=== PATIENT | female | born 1945 | race Caucasian/White ===

== ENCOUNTER → 2016-09-23 | Outpatient (CLI) | payer MEDICARE ==
[~2016-09-23] MED LIST: B/P MEDS; ESTR0.455 PO; NF-ESOM40C PO
--- OUTSIDE RECORDS SUMMARY | 2016-09-23 09:32 | XMS REPORT | Continuity of Care Document ---
Author Author [facility] Organization [facility] Address Unknown Phone Unavailable Allergies Active Description Code Type Severity Reaction Onset Reported/Identified Relationship to Patient Clinical Status Yes Sulfa (Sulfonamide Antibiotics) [id number] Drug Allergy Unknown N/A 02/06/2008 Medications Problems Date Dx Coded Attending Type Code Diagnosis Diagnosed By 09/18/2010 Ot 211.1 09/18/2010 Ot 530.11 09/18/2010 Ot 531.90 09/18/2010 Ot 535.50 09/18/2010 Ot 553.3 06/30/2012 Ot 272.4 06/30/2012 Ot 401.9 06/30/2012 Ot 426.3 06/30/2012 Ot 530.81 06/30/2012 Ot 780.2 06/30/2012 Ot 847.0 06/30/2012 Ot 873.43 06/30/2012 Ot 873.44 06/30/2012 Ot E000.8 06/30/2012 Ot E849.0 06/30/2012 Ot E888.9 06/30/2012 Ot V06.5 07/04/2012 Ot V58.32 10/02/2012 Ot 780.2 07/16/2014 JULIETH BOONE DO Ot 733.90 07/16/2014 JULIETH BOONE DO Ot V76.12 06/05/2015 Ot 793.89 06/05/2015 Ot 733.90 06/05/2015 Ot V76.12 06/05/2015 Ot 789.00 06/05/2015 Ot 786.50 06/05/2015 Ot 562.10 06/05/2015 Ot 578.1 06/05/2015 Ot 787.91 06/05/2015 Ot V76.12 06/05/2015 Ot 733.90 06/05/2015 Ot V76.12 06/05/2015 Ot 780.2 06/05/2015 JULIETH BOONE DO Ot 625.9 06/05/2015 ANA TAYLOR MD Ot 625.9 06/05/2015 MELY PITTMAN JULIETH C Ot V76.12 06/05/2015 CHAS LE, RICK Deleon Ot 558.9 06/05/2015 RICK DOHERTY MD Ot 789.01 06/05/2015 MELY PITTMAN JULIETH C Ot 733.90 06/05/2015 MELY PITTMAN JULIETH C Ot V76.12 06/30/2015 MIGUEL ESTHELA Betty MIXING MACHINE TENDER CORK ROD Ot H53.9 06/30/2015 MIGUEL ESTHELA M MIXING MACHINE TENDER CORK ROD Ot R51 07/03/2015 ESTHELA RIVERA MIXING MACHINE TENDER CORK ROD Ot H53.9 07/03/2015 ESTHELA RIVERA MIXING MACHINE TENDER CORK ROD Ot R51 07/23/2015 MELY PITTMAN JULIETH Yuliana Ot Z12.31 Procedures Results Encounters ACCT No. Visit Date/Time Discharge Status Pt. Type Provider Facility Loc./Unit Complaint [id number] 07/03/2015 12:45:00 2014 23:59:59 CLS Outpatient BOONE DOJULIETH [facility] RAD [id number] 06/05/2015 14:42:00 2014 23:59:59 CLS Outpatient ESTHELA RIVERAP [facility] RAD [id number] 06/20/2014 10:41:00 2013 23:59:59 CLS Outpatient BOONE JULIETH PITTMAN [facility] RAD [id number] 05/08/2014 12:40:00 2013 23:59:59 CLS Outpatient RICK DOHERTY MD [facility] RAD [id number] 05/29/2013 10:10:00 2012 23:59:59 CLS Outpatient BOONE DOJULIETH [facility] RAD [id number] 05/04/2013 09:16:00 2012 23:59:59 CLS Outpatient ANA TAYLOR MD [facility] RAD [id number] 04/16/2013 07:50:00 2012 23:59:59 CLS Outpatient BOONE DOJULIETH [facility] [id number] 10/03/2012 08:30:00 Document Registration [id number] 07/04/2012 09:11:00 Document Registration [id number] 07/04/2012 08:43:00 Document Registration [id number] 06/28/2012 11:15:00 Document Registration [id number] 06/09/2012 10:49:00 Document Registration [id number] 05/17/2011 09:52:00 Document Registration [id number] 11/23/2010 06:52:00 Document Registration [id number] 10/12/2010 07:45:00 Document Registration [id number] 09/18/2010 08:52:00 Document Registration [id number] 09/09/2010 08:47:00 Document Registration [id number] 04/16/2010 10:14:00 Document Registration [id number] 12/17/2009 13:48:00 Document Registration
--- NOTE | 2016-09-23 12:34 | Diagnostic Imaging Report ---
EXAM: DEXA scan. INDICATION: Screening for osteoporosis. FINDINGS: This study was compared to the prior exam of 06/20/14. The bone mineral density of the hips and spine was measured. The T score for the spine was 0.3. On the prior exam, the T score is 0.4. The T score for the left hip is 0.0 for the right hip is 0.3. On the previous exam, the respective T-scores were -0.2 and 0.0. IMPRESSION: There does not appear to have been any significant change since the prior study. There has been a minimal decrease in the bone mineral density of the spine and a slight increase in the bone mineral density of the hips. All of the T score values remain within normal limits. Dictated by: Dictated on workstation # [id number]
--- NOTE | 2016-09-23 19:13 | Diagnostic Imaging Report ---
INDICATION: Screening. At this time there are no current complaints. EXAMINATION: Bilateral digital screening mammogram with CAD. The current study was also evaluated with a Computer Aided Detection (CAD) system. COMPARISON: This study was compared to the prior exams of 07/03/15, 06/20/14 and 05/29/13. FINDINGS: The fibroglandular tissue in both breasts is dense. This does limit the sensitivity of this exam. Overall, there does not appear to have been any significant change. The small oval nodule in the midportion of the right breast, seen on the MLO view of the prior exam of 05/17/11, is again visualized and no different. There is no primary or secondary sign of malignancy noted. IMPRESSION: There is no evidence for malignancy. ACR BI-RADS Category 1: Negative. Result letter will be mailed to the patient. Note: At least 10% of breast cancer is not imaged by mammography. Dictated by: Dictated on workstation # [id number]
== END ==
LOC: RAD 09:29
PROVIDERS: ATTEND Obstetrics & Gynecology
DX: Z12.31 Encounter for screening mammogram for malignant neoplasm of breast (principal); M85.88 Other specified disorders of bone density and structure, other site; E55.9 Vitamin D deficiency, unspecified
CPT/HCPCS: 77067; 77080

== ENCOUNTER → 2016-09-30 | Outpatient (CLI) | payer MEDICARE ==
--- OUTSIDE RECORDS SUMMARY | 2016-09-30 09:29 | XMS REPORT | Continuity of Care Document ---
Author Author [facility] Organization [facility] Address Unknown Phone Unavailable Allergies Active Description Code Type Severity Reaction Onset Reported/Identified Relationship to Patient Clinical Status Yes Sulfa (Sulfonamide Antibiotics) [id number] Drug Allergy Unknown N/A 02/06/2008 Medications Problems Date Dx Coded Attending Type Code Diagnosis Diagnosed By 09/18/2010 Ot 211.1 09/18/2010 Ot 530.11 09/18/2010 Ot 531.90 09/18/2010 Ot 535.50 09/18/2010 Ot 553.3 06/30/2012 Ot 272.4 HYPERLIPIDEMIA NEC/NOS 06/30/2012 Ot 401.9 HYPERTENSION NOS 06/30/2012 Ot 426.3 LEFT BB BLOCK NEC 06/30/2012 Ot 530.81 ESOPHAGEAL REFLUX 06/30/2012 Ot 780.2 SYNCOPE AND COLLAPSE 06/30/2012 Ot 847.0 SPRAIN OF NECK 06/30/2012 Ot 873.43 OPEN WOUND OF LIP 06/30/2012 Ot 873.44 OPEN WOUND OF JAW 06/30/2012 Ot E000.8 OTHER EXTERNAL CAUSE STATUS 06/30/2012 Ot E849.0 ACCIDENT IN HOME 06/30/2012 Ot E888.9 FALL NOS 06/30/2012 Ot V06.5 TETANUS-DIPHTHERIA [TD][DT] 07/04/2012 Ot V58.32 ENCOUNTER FOR REMOVAL OF SUTURES 10/02/2012 Ot 780.2 SYNCOPE AND COLLAPSE 07/16/2014 JULIETH BOONE DO Ot 733.90 07/16/2014 JULIETH BOONE DO Ot V76.12 06/05/2015 Ot 793.89 06/05/2015 Ot 733.90 06/05/2015 Ot V76.12 06/05/2015 Ot 789.00 06/05/2015 Ot 786.50 06/05/2015 Ot 562.10 06/05/2015 Ot 578.1 06/05/2015 Ot 787.91 06/05/2015 Ot V76.12 06/05/2015 Ot 733.90 06/05/2015 Ot V76.12 06/05/2015 Ot 780.2 06/05/2015 BOONE DO JULIETH C Ot 625.9 06/05/2015 CLAUDIA LE, ANA Hernández Ot 625.9 06/05/2015 BOONE DO, JULIETH C Ot V76.12 06/05/2015 CHAS LE, RICK Deleon Ot 558.9 06/05/2015 CHAS LE, RICK Deleon Ot 789.01 06/05/2015 BOONE DO, JULIETH C Ot 733.90 06/05/2015 BOONE DO, JULIETH C Ot V76.12 06/30/2015 ESTHELA RIVERA DIRECTOR OF SUSTAINABILITY Ot H53.9 06/30/2015 ESTHELA RIVERA DIRECTOR OF SUSTAINABILITY Ot R51 07/03/2015 ESTHELA RIVERA DIRECTOR OF SUSTAINABILITY Ot H53.9 07/03/2015 ESTHELA RIVERA DIRECTOR OF SUSTAINABILITY Ot R51 07/23/2015 BOONE DO JULIETH C Ot Z12.31 09/23/2016 Ot V76.12 OTH SCREEN MAMMO-MALIGN NEOPLASM OF [place] 09/23/2016 Ot 733.90 BONE CARTILAGE DIS NOS 09/23/2016 Ot V76.12 OTH SCREEN MAMMO-MALIGN NEOPLASM OF [place] 09/23/2016 Ot 780.2 SYNCOPE AND COLLAPSE 09/23/2016 BOONE DO, JULIETH C Ot 625.9 FEM GENITAL SYMPTOMS NOS 09/23/2016 CLAUDIA LE, ANA Hernández Ot 625.9 FEM GENITAL SYMPTOMS NOS 09/23/2016 BOONE DO JULIETH C Ot V76.12 OTH SCREEN MAMMO-MALIGN NEOPLASM OF [place] 09/23/2016 CHAS LE, RICK Deleon Ot 558.9 NONINF GASTROENTERIT NEC 09/23/2016 CHAS LE, RICK Deleon Ot 789.01 ABDOMINAL PAIN, RIGHT UPPER QUADRANT 09/23/2016 BOONE DO, JULIETH C Ot 733.90 BONE CARTILAGE DIS NOS 09/23/2016 BOONE DO, JULIETH C Ot V76.12 OTH SCREEN MAMMO-MALIGN NEOPLASM OF [place] 09/23/2016 ESTHELA RIVERA DIRECTOR OF SUSTAINABILITY Ot H53.9 UNSPECIFIED VISUAL DISTURBANCE 09/23/2016 ESTHELA RIVERA DIRECTOR OF SUSTAINABILITY Ot R51 HEADACHE 09/23/2016 BOONE DO, JULIETH C Ot Z12.31 ENCNTR SCREEN MAMMOGRAM FOR MALIGNANT NE 09/23/2016 BOONE DO, JULIETH C Ot M85.9 DISORDER OF BONE DENSITY AND STRUCTURE, 09/23/2016 BOONE DO, JULIETH C Ot E55.9 VITAMIN D DEFICIENCY, UNSPECIFIED 09/23/2016 BOONE DO, JULIETH C Ot M85.9 DISORDER OF BONE DENSITY AND STRUCTURE, 09/23/2016 BOONE DO, JULIETH C Ot Z12.31 ENCNTR SCREEN MAMMOGRAM FOR MALIGNANT NE 09/23/2016 BOONE DO, JULIETH C Ot E55.9 VITAMIN D DEFICIENCY, UNSPECIFIED 09/23/2016 BOONE DO, JULIETH C Ot M85.9 DISORDER OF BONE DENSITY AND STRUCTURE, 09/23/2016 BOONE DO, JULIETH C Ot Z12.31 ENCNTR SCREEN MAMMOGRAM FOR MALIGNANT NE 09/24/2016 BOONE DO, JULIETH C Ot E55.9 VITAMIN D DEFICIENCY, UNSPECIFIED 09/24/2016 BOONE DO, JULIETH C Ot M85.9 DISORDER OF BONE DENSITY AND STRUCTURE, 09/24/2016 BOONE DO, JULIETH C Ot Z12.31 ENCNTR SCREEN MAMMOGRAM FOR MALIGNANT NE Procedures Results Encounters ACCT No. Visit Date/Time Discharge Status Pt. Type Provider Facility Loc./Unit Complaint [id number] 07/03/2015 12:45:00 2014 23:59:59 CLS Outpatient JULIETH BOONE DO [facility] RAD SCREENING [id number] 06/05/2015 14:42:00 2014 23:59:59 CLS Outpatient ESTHELA RIVERA [facility] RAD VISON CHANGES,HEADACHES [id number] 06/20/2014 10:41:00 2013 23:59:59 CLS Outpatient JULIETH BOONE DO [facility] RAD SCREENING, OSTEPOROSIS [id number] 05/08/2014 12:40:00 2013 23:59:59 CLS Outpatient RICK DOHERTY MD [facility] RAD RUQ PAIN,COLITIS [id number] 05/29/2013 10:10:00 2012 23:59:59 CLS Outpatient BOONEFemi PITTMAN JULIETH C [facility] RAD SCREENING [id number] 05/04/2013 09:16:00 2012 23:59:59 CLS Outpatient ANA TAYLOR MD [facility] RAD PELVIC PAIN [id number] 04/16/2013 07:50:00 2012 23:59:59 CLS Outpatient MELY PITTMAN JULIETH C [facility] RAD PELVIC PAIN [id number] 09/23/2016 09:29:00 ACT Outpatient JULIETH BOONE DO [facility] RAD HYPOVITAMINOSIS D,OSTEOPENIA OF THE ELDERLY [id number] 10/03/2012 08:30:00 Document Registration [id number] 07/04/2012 09:11:00 Document Registration [id number] 07/04/2012 08:43:00 Document Registration [id number] 06/28/2012 11:15:00 Document Registration [id number] 06/09/2012 10:49:00 Document Registration [id number] 05/17/2011 09:52:00 Document Registration [id number] 11/23/2010 06:52:00 Document Registration [id number] 10/12/2010 07:45:00 Document Registration [id number] 09/18/2010 08:52:00 Document Registration [id number] 09/09/2010 08:47:00 Document Registration [id number] 04/16/2010 10:14:00 Document Registration [id number] 12/17/2009 13:48:00 Document Registration
--- NOTE | 2016-09-30 15:53 | Diagnostic Imaging Report ---
Renal Doppler ultrasound. INDICATION: Hypertension. FINDINGS: The right kidney is 7.4 cm and the left kidney is 8.9 cm in length. There is no hydronephrosis. There is a 1.8 cm simple cyst in the lower pole of the right kidney. The peak systolic velocities in the right renal artery are 68, 61, and 74 cm/s and on the left 83, 84, and 100 cm/s from proximal to distal. Resistive index in the right kidney is 0.74-0.76 and on the left side 0.73-0.74. IMPRESSION: No significant abnormality. No evidence of renal artery stenosis. Dictated by: Dictated on workstation # [id number]
--- NOTE | 2016-10-01 06:48 | ECHOCARDIOGRAPHY REPORT ---
PROCEDURE PHYSICIAN: JIMBO RAIN DATE OF PROCEDURE: 09/30/2016 TWO DIMENSIONAL ECHOCARDIOGRAM REPORT PRIMARY PHYSICIAN: OTHER PHYSICIAN: REFERRING PHYSICIAN: Dr. Evelyn Woods ORDERING PHYSICIAN: INDICATION FOR THE PROCEDURE: Chest pain. MEASUREMENTS DERIVED VALUES LV DIAMETER (LAX) NORMALS NORMALS Diastolic 3.5 (3.6-5.2) Eject. Fract. 60% (60%+/-6%) Systolic (2.3-3.9) Diastolic Vol. % Shortening (0.22-0.42) Systolic Vol. Aortic Root IVS THICKNESS Diastolic 1 (0.6-1.1) LVPW THICKNESS Diastolic 1 (0.6-1.1) LA DIAMETER Systolic 2.4 (2.1-3.7) FINDINGS: 1. Technical quality is good. 2. The left ventricle is normal in size with normal contractility. Systolic function appeared to be normal. Estimated ejection fraction is 60%. 3. The left atrium is normal in size. No clot or thrombus were seen within the left atrium. 4. The right atrium and right ventricle are normal in size. No clot or thrombus were seen within the right side. 5. Mitral valve is normal in morphology with mild mitral regurgitation noted by color Doppler flow. No mitral valve prolapse. No mitral valve stenosis. 6. Aortic valve is trileaflet with normal opening and closing pattern. No significant aortic valve stenosis or regurgitation was seen. 7. Tricuspid valve is normal in morphology with mild to moderate tricuspid regurgitation noted by color Doppler flow. Doppler across tricuspid valve estimated pulmonary artery pressure of 28+ right atrial pressure. 8. Pulmonic valve is functioning normally. 9. No pericardial effusion. CONCLUSION: 1. Normal left ventricular size and systolic function. Estimated ejection fraction 60%. 2. Mild mitral regurgitation, mild to moderate tricuspid regurgitation. 3. Estimated pulmonary artery pressure of 35 mmHg. Job ID: [id number] Dictated Date: 09/30/2016 16:48:06 University Manager Date: 10/01/2016 06:45:45 / vinita
== END ==
LOC: RAD 09:24
PROVIDERS: ATTEND Internal Medicine Cardiovascular Disease
DX: I10 Essential (primary) hypertension (principal); R07.9 Chest pain, unspecified; E78.2 Mixed hyperlipidemia; I44.7 Left bundle-branch block, unspecified
CPT/HCPCS: 93306; 93975

== ENCOUNTER → 2016-10-06 | Outpatient (CLI) | payer MEDICARE ==
[~2016-10-06] VITALS: Ht 154.9 cm; Wt 54.9 kg
[~2016-10-06] MED LIST changes: +CATHETER FLUSH 10 ML SYR IV PRN; +REGADENOSON 0.4 MG/5 ML SYR (LEXISCAN) IV ONE
--- OUTSIDE RECORDS SUMMARY | 2016-10-06 07:32 | XMS REPORT | Continuity of Care Document ---
Author Author [facility] Organization [facility] Address Unknown Phone Unavailable Allergies Active Description Code Type Severity Reaction Onset Reported/Identified Relationship to Patient Clinical Status Yes Sulfa (Sulfonamide Antibiotics) [id number] Drug Allergy Unknown N/A 02/06/2008 Medications Problems [...] JULIETH C Ot V76.12 06/30/2015 ESTHELA RIVERA NUCLEAR PHYSICIST Ot H53.9 06/30/2015 ESTHELA RIVERA NUCLEAR PHYSICIST Ot R51 07/03/2015 ESTHELA RIVERA NUCLEAR PHYSICIST Ot H53.9 07/03/2015 ESTHELA RIVERA NUCLEAR PHYSICIST Ot R51 07/23/2015 BOONE DO JULIETH C [...] MAMMO-MALIGN NEOPLASM OF [place]AND[place] 09/23/2016 ESTHELA RIVERA NUCLEAR PHYSICIST Ot H53.9 UNSPECIFIED VISUAL DISTURBANCE 09/23/2016 RIVERA, ESTHELA M NUCLEAR PHYSICIST Ot R51 HEADACHE 09/23/2016 BOONE DO, JULIETH [...] Z12.31 ENCNTR SCREEN MAMMOGRAM FOR MALIGNANT NE 09/30/2016 JIMBO RAIN MD Ot E78.2 MIXED HYPERLIPIDEMIA 09/30/2016 JIMBO RAIN MD Ot I10 ESSENTIAL (PRIMARY) HYPERTENSION 09/30/2016 JIMBO RAIN MD Ot I44.7 LEFT BUNDLE-BRANCH BLOCK, UNSPECIFIED 09/30/2016 JIMBO RAIN MD Ot R07.9 CHEST PAIN, UNSPECIFIED 10/01/2016 JIMBO RAIN MD Ot E78.2 MIXED HYPERLIPIDEMIA 10/01/2016 JIMBO RAIN MD Ot I10 ESSENTIAL (PRIMARY) HYPERTENSION 10/01/2016 JIMBO RAIN MD Ot I44.7 LEFT BUNDLE-BRANCH BLOCK, UNSPECIFIED 10/01/2016 JIMBO RAIN MD Ot R07.9 CHEST PAIN, UNSPECIFIED 10/06/2016 JIMBO RAIN MD Ot E78.2 MIXED HYPERLIPIDEMIA 10/06/2016 JIMBO RAIN MD Ot I10 ESSENTIAL (PRIMARY) HYPERTENSION 10/06/2016 JIMBO RAIN MD Ot I44.7 LEFT BUNDLE-BRANCH BLOCK, UNSPECIFIED 10/06/2016 BRISEYDA LE, JIMBO Fan Ot R07.9 CHEST PAIN, UNSPECIFIED Procedures Results Encounters ACCT No. Visit Date/Time Discharge Status Pt. Type Provider Facility Loc./Unit Complaint [id number] 07/03/2015 12:45:00 2014 23:59:59 CLS Outpatient JULIETH BOONE DO [facility] RAD SCREENING [id number] 06/05/2015 14:42:00 2014 23:59:59 CLS Outpatient ESTHELA RIVERA NUCLEAR PHYSICIST [facility] RAD VISON CHANGES,HEADACHES [id number] 06/20/2014 10:41:00 2013 23:59:59 CLS Outpatient JULIETH BOONE DO [facility] RAD SCREENING, OSTEPOROSIS [id number] 05/08/2014 12:40:00 2013 23:59:59 CLS Outpatient RICK DOHERTY MD [facility] RAD RUQ PAIN,COLITIS [id number] 05/29/2013 10:10:00 2012 23:59:59 CLS Outpatient JULIETH BOONE DO [facility] RAD SCREENING [id number] 05/04/2013 09:16:00 2012 23:59:59 CLS Outpatient ANA TAYLOR MD [facility] RAD PELVIC PAIN [id number] 04/16/2013 07:50:00 2012 23:59:59 CLS Outpatient JULIETH BOONE DO [facility] RAD PELVIC PAIN [id number] 10/06/2016 07:23:00 ACT Outpatient JIMBO RAIN MD [facility] CARD CHEST PAIN SYNDROME [id number] 09/30/2016 09:24:00 ACT Outpatient JIMBO RAIN MD [facility] RAD CHEST PAIN SYNDROME [id number] 09/23/2016 09:29:00 ACT Outpatient JULIETH BOONE DO [facility] RAD HYPOVITAMINOSIS D,OSTEOPENIA OF THE ELDERLY [id number] 10/03/2012 08:30:00 Document Registration [id number] 07/04/2012 09:11:00 Document Registration [id number] 07/04/2012 08:43:00 Document Registration [id number] 06/28/2012 11:15:00 Document Registration [id number] 06/09/2012 10:49:00 Document Registration [id number] 05/17/2011 09:52:00 Document Registration [id number] 11/23/2010 06:52:00 Document Registration [id number] 10/12/2010 07:45:00 Document Registration [id number] 09/18/2010 08:52:00 Document Registration [id number] 09/09/2010 08:47:00 Document Registration [id number] 04/16/2010 10:14:00 Document Registration [id number] 12/17/2009 13:48:00 Document Registration
[2016-10-06 09:20] VITALS: BP 156/76
--- NOTE | 2016-10-07 10:01 | STRESS TEST ---
PROCEDURE PHYSICIAN: JIMBO RAIN DATE OF PROCEDURE: 10/06/2016 LEXISCAN MYOVIEW STRESS TEST REPORT: REFERRING PHYSICIAN: Dr. Evelyn Woods. INDICATION FOR THE PROCEDURE: Chest pain. BASELINE HEART RATE: 83 BASELINE BLOOD PRESSURE: 157/66 BASELINE EKG: Sinus rhythm with poor R wave progression, left bundle branch block. IN SUMMARY: The patient was injected with 10.2 mCi of technetium 99 Myoview and the resting images were obtained. Then the patient received 0.4 mg of Lexiscan followed by 30.6 mCi of technetium 99 Myoview. Throughout the test, there were no EKG changes. The resting and stress images were reviewed and compared in the short axis, horizontal long axis, and vertical long axis views. Review of the images showed good radiotracer uptake with no ischemia or infarction. SSS is 2, SDS 0, TID value 1.06. On the gated images, the left ventricle appeared to be normal size with normal contractility. Calculated ejection fraction 68%. IN CONCLUSION: 1. The patient tolerated Lexiscan well. 2. No ischemia or infarction on SPECT images. 3. Normal left ventricular size with normal contractility. Calculated ejection fraction 68%. Job ID: [id number] Dictated Date: 10/07/2016 07:09:24 Regional Sales Consultant Date: 10/07/2016 09:58:46 / [email or web address]
== END ==
LOC: CARD 07:23
PROVIDERS: ATTEND Internal Medicine Cardiovascular Disease
DX: R07.9 Chest pain, unspecified (principal); I10 Essential (primary) hypertension; I44.7 Left bundle-branch block, unspecified; E78.2 Mixed hyperlipidemia
CPT/HCPCS: 78452; 93017

== ENCOUNTER 2017-12-07 05:34 | Outpatient (CLI) | payer MEDICARE ==
[~2017-12-07] VITALS: Ht 154.9 cm; Wt 54.9 kg
[~2017-12-07 05:34] MED LIST changes: -CATHETER FLUSH 10 ML SYR IV PRN; -REGADENOSON 0.4 MG/5 ML SYR (LEXISCAN) IV ONE
[2017-12-07] MEDS ORDERED: METO-370 PO (11:20)
[2017-12-07] MEDS ORDERED: VIT1CAPS9 PO (11:20)
[2017-12-07] MEDS ORDERED: CHOL500061 PO (11:20)
[2017-12-07] MEDS ORDERED: LOSA50TA36 PO (11:20)
[2017-12-07] MEDS ORDERED: ESTR1TAB24 PO (11:20)
[2017-12-07] MEDS ORDERED: ATOR20TA66 PO (11:20)
[2017-12-07] MEDS ORDERED: OMEG-160 PO (11:20)
== END 2017-12-07 11:26 ==
LOC: PREOP 05:34
PROVIDERS: ATTEND Surgery
DX: Z01.818 Encounter for other preprocedural examination (principal)

== ENCOUNTER 2017-12-14 09:13 | Day surgery (SDC) | payer MEDICARE ==
[~2017-12-14] VITALS: Ht 154.9 cm; Wt 54.9 kg
[~2017-12-14 09:13] MED LIST changes: +ATOR20TA66 PO; +CHOL500061 PO; +ESTR1TAB24 PO; +LOSA50TA36 PO; +METO-370 PO; +OMEG-160 PO; +VIT1CAPS9 PO
[2017-12-14] MEDS ORDERED: NS IV 500 ML 500 ML ONE (09:37)
[2017-12-14 09:40] VITALS: BP 178/73
[2017-12-14] MEDS ORDERED: NS IV 500 ML 500 ML IV PRN (10:01)
--- NOTE | 2017-12-14 10:11 | Conscious Sedation/ASA ---
Conscious Sedation Pre-Proced Time Reviewed: 09:30 ASA Class: 2 Airway Mallampati Classification: ([place] appropriate class) I. II. III, IV Lungs Heart ASA score ASA 1: a normal healthy patient ASA 2: a patient with a mild systemic disease (mid diabetes, controlled hypertension, obesity ASA 3: a patient with a severe systemic disease that limits activity (angina , COPD, prior Myocardial infarction) ASA 4: a patient with an incapacitating disease that is a constant threat to life (CHF, renal failure) ASA 5: a moribund patient not expected to survive 24 hrs. (ruptured aneurysm) ASA 6: a declared brain patient whose organs are being harvested. For emergent operations, add the letter E after the classification Grade 2 Sedation Plan: Analgesia, Amnesia, Plan communicated to team members, Discussed options with patient/fam, Discussed risks with patient/fam Note The patient is an appropriate candidate to undergo the planned procedure, sedation, and anesthesia. The patient immediately re-assessed prior to indication. FARZANA HARE MD December 14, 2017 10:11 am
--- NOTE | 2017-12-14 10:12 | Progress Note-Pre Operative ---
Pre-Operative Progress Note H&P Reviewed The H&P was reviewed, patient examined and no changes noted. Date Seen by Provider: December 14, 2017 Time Seen by Provider: :30 Date H&P Reviewed: December 14, 2017 Time H&P Reviewed: :30 Pre-Operative Diagnosis: GERD, hx diverticulitis FARZANA HARE MD December 14, 2017 10:12 am
[2017-12-14] MEDS ORDERED: LIDOCAINE JELLY 2% (XYLOCAINE) 5 ML TUBE ONE (10:13)
[2017-12-14] MEDS ORDERED: fentaNYL INJECTION 100 MCG/2 ML AMP ONE ×3 (10:13→11:06)
[2017-12-14] MEDS ORDERED: MIDAZOLAM 2 MG/2 ML (VERSED) VIAL ONE ×5 (10:14→11:06)
[2017-12-14] MEDS ORDERED: HURRICAINE EXT TUBE (BENZOCAINE) ONE (10:14)
[2017-12-14] MEDS ORDERED: HURRICAINE EXT TUBE (BENZOCAINE) XX PRN (10:15)
[2017-12-14] MEDS ORDERED: ONDANSETRON 4 MG/2 ML (SDV) Z0FRAN IV PRN (10:15)
[2017-12-14] MEDS ORDERED: ACETAMINOPHEN 325 MG TABLET/CAPLET (TYLENOL) PO PRN (10:15)
[2017-12-14] MEDS ORDERED: HYDROcodone/APAP 5 MG/325 MG (LORTAB) TAB PO PRN (10:15)
[2017-12-14] MEDS ORDERED: LIDOCAINE JELLY 2% (XYLOCAINE) 5 ML TUBE MM PRN (10:15)
[2017-12-14] MEDS ORDERED: morphine INJ 10 MG/ML 1ML (SYR OR VIAL) IV PRN (10:15)
[2017-12-14] MEDS: fentaNYL INJECTION 100 MCG/2 ML AMP IVP PRN ×6 (10:23→11:19)
[2017-12-14] MEDS: MIDAZOLAM 2 MG/2 ML (VERSED) VIAL IVP PRN ×5 (10:25→11:11)
--- NOTE | 2017-12-14 11:38 | Progress Note-Post Operative ---
Post-Operative Progess Note Surgeon (s)/Clerk Guide (s) Surgeon FARZANA HARE MD Clerk Guide: none Pre-Operative Diagnosis GERD, hx diverticulitis Post-Operative Diagnosis reflux esophagitis(class B), mild-mod gastritis. chronic stage 1 ext and int hemorrhoids, moderate sigmoid diverticulosis. Procedure & Operative Findings Date of Procedure 12/14/17 Procedure Performed/Findings EGD with bx. Colonoscopy. Anesthesia Type CS Estimated Blood Loss Estimated blood loss (mL): minimal Specimens/Packing Specimens Removed GE jxn, antrum FARZANA HARE MD December 14, 2017 11:38 am
--- NOTE | 2017-12-14 11:39 | Discharge Inst-Surgical ---
D/C Lap Instructions-PAYAM Follow up PRN Activity as tolerated High Fiber Diet 25g or more per day Avoid Alcohol, Caffeine, Spicy [place] and Acid foods. Drink 64 fluid oz or more of fluids per day. Symptoms to Report: Fever over 101 degree F, Nausea/Vomiting If any problems/questions: Contact your physician or go to Emergency Room FARZANA HARE MD December 14, 2017 11:39 am
[2017-12-14 12:00] VITALS: BP 123/74
[2017-12-14 12:28] VITALS: BP 150/70
[2017-12-14] MEDS ORDERED: ONDANSETRON 4 MG (ZOFRAN) ORAL DISSOLVE TAB PO NR (13:10)
[2017-12-14 14:00] VITALS: BP 174/69
--- NOTE | 2017-12-14 21:12 | OPERATIVE REPORT ---
DATE OF SERVICE: 12/14/2017 ATTENDING PRIMARY CARE PHYSICIAN: Evelyn Woods MD PREOPERATIVE DIAGNOSES: Gastroesophageal reflux disease, history of diverticulitis. POSTOPERATIVE DIAGNOSES: Reflux esophagitis class B. No significant sized hiatal hernia, mild to moderate gastritis, chronic stage I external and internal hemorrhoids, moderate sigmoid diverticulosis. PROCEDURE: EGD with biopsy, colonoscopy. SURGEON: Farzana Harrison MD ANESTHESIA: Conscious sedation. ESTIMATED BLOOD LOSS: Minimal. FINDINGS: 1. EGD, reflux esophagitis class B. On this exam, there was no significant hiatal hernia identified upon retroflexion and insufflation, mild to moderate gastritis. No formal ulcers, polyps or any neoplasms. Pylorus and duodenum appeared normal. 2. Colonoscopy. Chronic stage I external and internal hemorrhoids, moderate sigmoid diverticulosis with no mucosal inflammatory change to indicate any active diverticulitis. The remainder of the colon was normal. There were no polyps identified. DISPOSITION: The patient tolerated the procedure well. INDICATIONS: The patient is a 72-year-old female, who we have seen before in the past. She has a longstanding history of gastroesophageal reflux disease; however, has been able to keep her symptoms manageable with medication as well as diet and lifestyle changes. She did undergo an EGD on 09/18/2010, which did show gastroesophageal reflux disease and gastritis, as well as a hiatal hernia. Biopsies were negative for H. pylori as well as negative for Shepherd's esophagus. She reports that she has had worsening episodes of left upper chest discomfort when taking spicy foods including garlic as well as chocolate. She also has had left lower quadrant abdominal pain on an intermittent basis and suspected diverticulitis. She underwent 2 previous attempts for colonoscopy; however, due to the tortuosity of her colon, this was unsuccessful. She does not report any red blood per rectum nor any dark tarry stools. DESCRIPTION OF PROCEDURE: The patient was brought to the endoscopy suite, laid in left lateral decubitus position. After adequate IV pain and sedating medications and conscious sedation anesthesia, the mouthpiece was applied. The endoscope was placed in the mouth, visualizing the pharynx and hypopharyngeal region. Vocal cords, epiglottis and vallecula identified and appeared to be normal. Endoscope was then intubated into the esophageal opening and esophagus was insufflated. The endoscope was then advanced to the first, second and third portion of the esophagus at the level of the GE junction. A reflux esophagitis class B identified. There were no ulcers or strictures identified in this region. A biopsy was taken with forceps with visualization of good hemostasis. The endoscope was then easily advanced in the stomach and the endoscope retroflexed. After insufflation for a significant amount of time, there was no hiatal hernia identified on this exam. There was a mild to moderate gastritis noted. There were no formal ulcerations, polyps or any neoplasms identified. A biopsy was taken of the stomach and antrum with visualization of good hemostasis. Endoscope was then advanced to the pylorus and the first and second portion of the duodenum, which appeared normal with no distal obstructions. The endoscope was then slowly withdrawn with taking a second look and suctioning residual air with no additional findings. The patient tolerated this portion of the procedure well. We will recommend continued medical management with the necessary lifestyle and diet accommodation including small and more frequent meals, avoidance of eating at night as well as head elevation while lying supine. She also needs to avoid caffeinated beverages, spicy, greasy and acidic foods as well as chocolate and peppermint. Under the same conscious sedation anesthesia, we then proceeded with colonoscopy portion of the procedure. A digital rectal examination was performed, which revealed mild chronic stage I external and internal hemorrhoids, not actively edematous nor inflamed and no bleeding. Normal sphincter tone was felt and there were no palpable masses. The endoscope was then intubated to the anus and rectum gently insufflated. The endoscope was then advanced to the valves of [place] of the rectum with no polyps or neoplasms identified. Through the sigmoid colon, a moderate sigmoid diverticulosis identified. There were no mucosal inflammatory changes to indicate any active diverticulitis. The endoscope was then advanced to the remainder of the descending, transverse and ascending colon to the cecum. These segments were normal. There were no polyps or any neoplasms identified. The endoscope was then slowly withdrawn with taking a second look and suctioning of residual air with no additional findings. The patient tolerated the procedure well. We will recommend a high fiber diet with at least 25 to 30 grams of fiber per day as well as at least 64 fluid ounces of water daily to promote soft stools on a daily basis. She does not need another colonoscopy for another 10 years; however, sooner if any problems arise. Job ID: [id number] DocumentID: [id number] Dictated Date: 12/14/2017 11:34:06 Recycling Manager Date: 12/14/2017 21:11:21 Dictated By: FARZANA HARRISON MD
== END 2017-12-14 14:00 | disposition home or self-care (01) ==
LOC: ENDO 09:13
PROVIDERS: ATTEND Surgery
DX: K21.0 Gastro-esophageal reflux disease with esophagitis (principal); K29.70 Gastritis, unspecified, without bleeding; K57.30 Diverticulosis of large intestine without perforation or abscess without bleeding; K64.0 First degree hemorrhoids; E78.00 Pure hypercholesterolemia, unspecified; I10 Essential (primary) hypertension; Z88.2 Allergy status to sulfonamides; Z79.899 Other long term (current) drug therapy
CPT/HCPCS: 88305; 88342

== ENCOUNTER → 2018-01-02 | Outpatient (CLI) | payer MEDICARE ==
--- NOTE | 2018-01-02 20:08 | Diagnostic Imaging Report ---
INDICATION: Screening. The current study was also evaluated with a Computer Aided Detection (CAD) system. Comparison made with prior examination from 09/23/2016 back through 05/17/2011. 3D tomosynthesis was also performed and reviewed. FINDINGS: There is heterogeneously dense fibroglandular tissue bilaterally. There are scattered benign-type calcifications. There is no dominant mass, spiculated lesion, or suspicious calcification identified. The skin, nipples, and axillae are unremarkable. IMPRESSION: Benign. ACR BI-RADS Category 2: Benign findings. Result letter will be mailed to the patient. Note: At least 10% of breast cancer is not imaged by mammography. Dictated by: Dictated on workstation # [id number]
== END ==
LOC: RAD 09:05
PROVIDERS: ATTEND Obstetrics & Gynecology
DX: Z12.31 Encounter for screening mammogram for malignant neoplasm of breast (principal)
CPT/HCPCS: 77067

== ENCOUNTER 2018-04-17 17:22 | Inpatient (IN) | payer MEDICARE ==
[~2018-04-17] VITALS: Ht 154.9 cm; Wt 54.9 kg
[~2018-04-17 17:22] MED LIST changes: -CHOL5000 PO; -CIPR500T4 PO; -LACT1CAP87 PO; -METR500T21 PO; -TRAV5DRO OD
--- OUTSIDE RECORDS SUMMARY | 2018-04-17 17:36 | XMS REPORT | Continuity of Care Document ---
Author Author [facility] Organization [facility] Address Unknown Phone Unavailable Allergies Active Description Code Type Severity Reaction Onset Reported/Identified Relationship to Patient Clinical Status Yes Sulfa (Sulfonamide Antibiotics) [id number] Drug Allergy Unknown N/A 2007 Yes niacin [id number] Drug Allergy Severe HYPOTENSION/SYN 12/14/2017 Yes Sulfa (Sulfonamide Antibiotics) [id number] Drug Allergy Mild HIVES/RASH Medications There is no data. Problems Date Dx Coded Attending Type Code Diagnosis Diagnosed By 09/18/2010 Ot 211.1 09/18/2010 Ot 530.11 09/18/2010 Ot 531.90 09/18/2010 Ot 535.50 09/18/2010 Ot 553.3 05/17/2012 SHWETHA JOHNSON APRN V04.81 FLU DX (3 YRS AND ABOVE, IM) 06/30/2012 Ot 272.4 HYPERLIPIDEMIA NEC/NOS 06/30/2012 Ot [...] Ot E888.9 FALL NOS 06/30/2012 Ot V06.5 TETANUS- DIPHTHERIA [TD][DT] 07/04/2012 Ot V58.32 ENCOUNTER FOR REMOVAL [...] 06/05/2015 Ot V76.12 06/05/2015 Ot 780.2 06/05/2015 MELY PITTMAN JULIETH C Ot 625.9 06/05/2015 CLAUDIA LE, ANA Hernández Ot 625.9 06/05/2015 MELY PITTMAN JULIETH C Ot V76.12 06/05/2015 CHAS LE, RICK Deleon Ot 558.9 06/05/2015 CHAS LE, RICK Deleon Ot 789.01 06/05/2015 MELY PITTMAN JULIETH C Ot 733.90 06/05/2015 IMELDA BOONE DOA C Ot V76.12 06/30/2015 ESTHELA RIVERA KILN FURNITURE SAW TENDER Ot H53.9 06/30/2015 ESTHELA RIVERA KILN FURNITURE SAW TENDER Ot R51 07/03/2015 ESTHELA RIVERA KILN FURNITURE SAW TENDER Ot H53.9 07/03/2015 ESTHELA RIVERA KILN FURNITURE SAW TENDER Ot R51 07/23/2015 MELY PITTMAN JULIETH C Ot Z12.31 09/23/2016 Ot V76.12 OTH SCREEN MAMMO-MALIGN NEOPLASM OF [place] 09/23/2016 Ot 733.90 BONE CARTILAGE DIS NOS 09/23/2016 Ot V76.12 OTH SCREEN MAMMO-MALIGN NEOPLASM OF [place] 09/23/2016 Ot 780.2 SYNCOPE AND COLLAPSE 09/23/2016 MELY DO JULIETH C Ot 625.9 FEM GENITAL SYMPTOMS NOS 09/23/2016 CLAUDIA LE, ANA Hernández Ot 625.9 FEM GENITAL SYMPTOMS NOS 09/23/2016 MELY PITTMAN JULIETH C Ot V76.12 OTH SCREEN MAMMO-MALIGN NEOPLASM OF [place] 09/23/2016 CHAS LE, RICK Deleon Ot 558.9 NONINF GASTROENTERIT NEC 09/23/2016 CHAS LE, RICK Deleon Ot 789.01 ABDOMINAL PAIN, RIGHT UPPER QUADRANT 09/23/2016 IMELDA BOONE DOA C Ot 733.90 BONE CARTILAGE DIS NOS 09/23/2016 BOONE DO JULIETH C Ot V76.12 OTH SCREEN MAMMO-MALIGN NEOPLASM OF [place] 09/23/2016 ESTHELA RIVERA KILN FURNITURE SAW TENDER Ot H53.9 UNSPECIFIED VISUAL DISTURBANCE 09/23/2016 ESTHELA RIVERA KILN FURNITURE SAW TENDER Ot R51 HEADACHE 09/23/2016 BOONE DOIMELDAA C Ot Z12.31 ENCNTR SCREEN MAMMOGRAM FOR MALIGNANT NE 09/23/2016 BOONE DO JULIETH C Ot M85.9 DISORDER OF BONE DENSITY AND STRUCTURE, 09/23/2016 BOONE DO, JULIETH C Ot E55.9 VITAMIN D DEFICIENCY, UNSPECIFIED 09/23/2016 BOONE DO, JULIETH C Ot M85.9 DISORDER OF BONE DENSITY AND STRUCTURE, 09/23/2016 BOONE DO JULIETH C Ot Z12.31 ENCNTR SCREEN MAMMOGRAM FOR MALIGNANT NE 09/23/2016 BOONE DOIMELDAA C Ot E55.9 VITAMIN D DEFICIENCY, UNSPECIFIED 09/23/2016 BOONE DO JULIETH C Ot M85.9 DISORDER OF BONE DENSITY AND STRUCTURE, 09/23/2016 BOONE DO, JULIETH C Ot Z12.31 ENCNTR SCREEN MAMMOGRAM FOR MALIGNANT NE 09/24/2016 BOONE DO JULIETH C Ot E55.9 VITAMIN D DEFICIENCY, UNSPECIFIED 09/24/2016 BOONE DO, JULIETH C Ot M85.9 DISORDER OF BONE DENSITY AND STRUCTURE, 09/24/2016 BOONE DO JULIETH C Ot Z12.31 ENCNTR SCREEN MAMMOGRAM [...] Ot I44.7 LEFT BUNDLE-BRANCH BLOCK, UNSPECIFIED 10/06/2016 JIMBO RAIN MD Ot R07.9 CHEST PAIN, UNSPECIFIED 10/07/2016 JIMBO RAIN MD Ot E78.2 MIXED HYPERLIPIDEMIA 10/07/2016 JIMBO RAIN MD Ot I10 ESSENTIAL (PRIMARY) HYPERTENSION 10/07/2016 JIMBO RAIN MD Ot I44.7 LEFT BUNDLE-BRANCH BLOCK, UNSPECIFIED 10/07/2016 JIMBO RAIN MD Ot R07.9 CHEST PAIN, UNSPECIFIED 10/21/2016 JIMBO RAIN MD Ot E78.2 MIXED HYPERLIPIDEMIA 10/21/2016 JIMBO RAIN MD Ot I10 ESSENTIAL (PRIMARY) HYPERTENSION 10/21/2016 JIMBO RAIN MD Ot I44.7 LEFT BUNDLE-BRANCH BLOCK, UNSPECIFIED 10/21/2016 JIMBO RAIN MD Ot R07.9 CHEST PAIN, UNSPECIFIED 10/27/2016 JIMBO RAIN MD Ot E78.2 MIXED HYPERLIPIDEMIA 10/27/2016 JIMBO RAIN MD Ot I10 ESSENTIAL (PRIMARY) HYPERTENSION 10/27/2016 JIMBO RAIN MD Ot I44.7 LEFT BUNDLE-BRANCH BLOCK, UNSPECIFIED 10/27/2016 JIMBO RAIN MD Ot R07.9 CHEST PAIN, UNSPECIFIED 10/27/2016 JULIETH BOONE DO Ot E55.9 VITAMIN D DEFICIENCY, UNSPECIFIED 10/27/2016 JULIETH BOONE DO Ot M85.88 OT DISRD OF BONE DENSITY AND STRUCTURE, 10/27/2016 JULIETH BOONE DO Ot Z12.31 ENCNTR SCREEN MAMMOGRAM FOR MALIGNANT NE 10/27/2016 JIMBO RAIN MD Ot E78.2 MIXED HYPERLIPIDEMIA 10/27/2016 JIMBO RAIN MD Ot I10 ESSENTIAL (PRIMARY) HYPERTENSION 10/27/2016 JIMBO RAIN MD Ot I44.7 LEFT BUNDLE-BRANCH BLOCK, UNSPECIFIED 10/27/2016 JIMBO RAIN MD Ot R07.9 CHEST PAIN, UNSPECIFIED 11/02/2016 JIMBO RAIN MD Ot E78.2 MIXED HYPERLIPIDEMIA 11/02/2016 JIMBO RAIN MD Ot I10 ESSENTIAL (PRIMARY) HYPERTENSION 11/02/2016 JIMBO RAIN MD Ot I44.7 LEFT BUNDLE-BRANCH BLOCK, UNSPECIFIED 11/02/2016 JIMBO RAIN MD Ot R07.9 CHEST PAIN, UNSPECIFIED 11/16/2016 BOONE DO, JULIETH C Ot E55.9 VITAMIN D DEFICIENCY, UNSPECIFIED 11/16/2016 BOONE DO, JULIETH C Ot M85.88 OTH DISRD OF BONE DENSITY AND STRUCTURE, 11/16/2016 BOONE DO, JULIETH C Ot Z12.31 ENCNTR SCREEN MAMMOGRAM FOR MALIGNANT NE 12/07/2017 Ot 780.2 SYNCOPE AND COLLAPSE 12/07/2017 BOONE DO, JULIETH C Ot 625.9 FEM GENITAL SYMPTOMS NOS 12/07/2017 ANA TAYLOR MD Ot 625.9 FEM GENITAL SYMPTOMS NOS 12/07/2017 BOONE DO, JULIETH C Ot V76.12 OTH SCREEN MAMMO-MALIGN NEOPLASM OF [place] 12/07/2017 RICK DOHERTY MD Ot 558.9 NONINF GASTROENTERIT NEC 12/07/2017 RICK DOHERTY MD Ot 789.01 ABDOMINAL PAIN, RIGHT UPPER QUADRANT 12/07/2017 BOONE DO, JULIETH C Ot 733.90 BONE CARTILAGE DIS NOS 12/07/2017 BOONE DO, JULIETH C Ot V76.12 OTH SCREEN MAMMO-MALIGN NEOPLASM OF [place] 12/07/2017 ESTHELA RIVERA KILN FURNITURE SAW TENDER Ot H53.9 UNSPECIFIED VISUAL DISTURBANCE 12/07/2017 ESTHELA RIVERA KILN FURNITURE SAW TENDER Ot R51 HEADACHE 12/07/2017 BOONE DO JULIETH C Ot Z12.31 ENCNTR SCREEN MAMMOGRAM FOR MALIGNANT NE 12/07/2017 JIMBO RAIN MD Ot E78.2 MIXED HYPERLIPIDEMIA 12/07/2017 JIMBO RAIN MD Ot I10 ESSENTIAL (PRIMARY) HYPERTENSION 12/07/2017 JIMBO RAIN MD Ot I44.7 LEFT BUNDLE-BRANCH BLOCK, UNSPECIFIED 12/07/2017 JIMBO RAIN MD Ot R07.9 CHEST PAIN, UNSPECIFIED 12/07/2017 JIMBO RAIN MD Ot E78.2 MIXED HYPERLIPIDEMIA 12/07/2017 JIMBO RAIN MD Ot I10 ESSENTIAL (PRIMARY) HYPERTENSION 12/07/2017 JIMBO RAIN MD Ot I44.7 LEFT BUNDLE-BRANCH BLOCK, UNSPECIFIED 12/07/2017 JIMBO RAIN MD Ot R07.9 CHEST PAIN, UNSPECIFIED 12/07/2017 BOONE DO JULIETH C Ot E55.9 VITAMIN D DEFICIENCY, UNSPECIFIED 12/07/2017 BOONE DO, JULIETH C Ot M85.88 OTH DISRD OF BONE DENSITY AND STRUCTURE, 12/07/2017 BOONE DO JULIETH C Ot Z12.31 ENCNTR SCREEN MAMMOGRAM FOR MALIGNANT NE 12/07/2017 BOONE DO, JULIETH C Ot Z12.31 ENCNTR SCREEN MAMMOGRAM FOR MALIGNANT NE 12/07/2017 Ot 780.2 SYNCOPE AND COLLAPSE 12/07/2017 BOONE DO JULIETH C Ot Z12.31 ENCNTR SCREEN MAMMOGRAM FOR MALIGNANT NE 12/07/2017 Ot 780.2 SYNCOPE AND COLLAPSE 12/07/2017 BOONE DO, JULIETH C Ot Z12.31 ENCNTR SCREEN MAMMOGRAM FOR MALIGNANT NE 12/07/2017 FARZANA HARE MD Ot Z01.818 ENCOUNTER FOR OTHER PREPROCEDURAL EXAMIN 12/08/2017 FARZANA HARE MD, Ot Z01.818 ENCOUNTER FOR OTHER PREPROCEDURAL EXAMIN 12/14/2017 FARZANA HARE MD, Ot E78.00 PURE HYPERCHOLESTEROLEMIA, UNSPECIFIED 12/14/2017 FARZANA HARE MD Ot I10 ESSENTIAL (PRIMARY) HYPERTENSION 12/14/2017 FARZANA HARE MD, Ot K21.0 GASTRO-ESOPHAGEAL REFLUX DISEASE WITH ES 12/14/2017 FARZANA HARE MD, Ot K29.70 GASTRITIS, UNSPECIFIED, WITHOUT BLEEDING 12/14/2017 FARZANA HARE MD, Ot K57.30 DVRTCLOS OF LG INT W/O PERFORATION OR AB 12/14/2017 FARZANA HARE MD, Ot K64.0 FIRST DEGREE HEMORRHOIDS 12/14/2017 FARZANA HARE MD, Ot Z79.899 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 12/14/2017 FARZANA HARE MD Ot Z88.2 ALLERGY STATUS TO SULFONAMIDES STATUS 12/16/2017 FARZANA HARE MD Ot E78.00 PURE HYPERCHOLESTEROLEMIA, UNSPECIFIED 12/16/2017 FARZANA HARE MD Ot I10 ESSENTIAL (PRIMARY) HYPERTENSION 12/16/2017 FARZANA HARE MD Ot K21.0 GASTRO-ESOPHAGEAL REFLUX DISEASE WITH ES 12/16/2017 FARZANA HARE MD Ot K29.70 GASTRITIS, UNSPECIFIED, WITHOUT BLEEDING 12/16/2017 FARZANA HARE MD Ot K57.30 DVRTCLOS OF LG INT W/O PERFORATION OR AB 12/16/2017 FARZANA HARE MD Ot K64.0 FIRST DEGREE HEMORRHOIDS 12/16/2017 FARZANA HARE MD Ot Z79.899 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 12/16/2017 FARZANA HARE MD Ot Z88.2 ALLERGY STATUS TO SULFONAMIDES STATUS 12/21/2017 FARZANA HARE MD Ot E78.00 PURE HYPERCHOLESTEROLEMIA, UNSPECIFIED 12/21/2017 LOUISA HARE MDKI Ot I10 ESSENTIAL (PRIMARY) HYPERTENSION 12/21/2017 FARZANA HARE MD Ot K21.0 GASTRO-ESOPHAGEAL REFLUX DISEASE WITH ES 12/21/2017 FARZANA HARE MD Ot K29.70 GASTRITIS, UNSPECIFIED, WITHOUT BLEEDING 12/21/2017 FARZANA HARE MD Ot K57.30 DVRTCLOS OF LG INT W/O PERFORATION OR AB 12/21/2017 FARZANA HARE MD Ot K64.0 FIRST DEGREE HEMORRHOIDS 12/21/2017 FARZANA HARE MD Ot Z79.899 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 12/21/2017 FARZANA HARE MD Ot Z88.2 ALLERGY STATUS TO SULFONAMIDES STATUS 01/03/2018 JULIETH BOONE DO Ot Z12.31 ENCNTR SCREEN MAMMOGRAM FOR MALIGNANT NE 01/08/2018 JULIETH BOONE DO Ot Z12.31 ENCNTR SCREEN MAMMOGRAM FOR MALIGNANT NE 01/25/2018 JULIETH BOONE DO Ot Z12.31 ENCNTR SCREEN MAMMOGRAM FOR MALIGNANT NE 04/17/2018 BOONE DO, JULIETH C Ot 625.9 FEM GENITAL SYMPTOMS NOS 04/17/2018 CLAUDIA LE, ANA Hernández Ot 625.9 FEM GENITAL SYMPTOMS NOS 04/17/2018 JULIETH BOONE DO C Ot V76.12 OTH SCREEN MAMMO-MALIGN NEOPLASM OF [place]AND[place] 04/17/2018 RICK DOHERTY MD Ot 558.9 NONINF GASTROENTERIT NEC 04/17/2018 RICK DOHERTY MD Ot 789.01 ABDOMINAL PAIN, RIGHT UPPER QUADRANT 04/17/2018 IMELDA BOONE DOA C Ot 733.90 BONE CARTILAGE DIS NOS 04/17/2018 MELY PITTMAN JULIETH C Ot V76.12 OTH SCREEN MAMMO-MALIGN NEOPLASM OF [place] 04/17/2018 ESTHELA RIVERA KILN FURNITURE SAW TENDER Ot H53.9 UNSPECIFIED VISUAL DISTURBANCE 04/17/2018 ESTHELA RIVERA KILN FURNITURE SAW TENDER Ot R51 HEADACHE 04/17/2018 JULIETH BOONE DO Ot Z12.31 ENCNTR SCREEN MAMMOGRAM FOR MALIGNANT NE 04/17/2018 JIMBO RAIN MD Ot E78.2 MIXED HYPERLIPIDEMIA 04/17/2018 BRISEYDA LE, JIMBO Fan Ot I10 ESSENTIAL (PRIMARY) HYPERTENSION 04/17/2018 JIMBO RAIN MD Ot I44.7 LEFT BUNDLE-BRANCH BLOCK, UNSPECIFIED 04/17/2018 JIMBO RAIN MD Ot R07.9 CHEST PAIN, UNSPECIFIED 04/17/2018 JIMBO RAIN MD Ot E78.2 MIXED HYPERLIPIDEMIA 04/17/2018 JIMBO RAIN MD Ot I10 ESSENTIAL (PRIMARY) HYPERTENSION 04/17/2018 JIMBO RAIN MD Ot I44.7 LEFT BUNDLE-BRANCH BLOCK, UNSPECIFIED 04/17/2018 JIMBO RAIN MD Ot R07.9 CHEST PAIN, UNSPECIFIED 04/17/2018 JULIETH BOONE DO Ot E55.9 VITAMIN D DEFICIENCY, UNSPECIFIED 04/17/2018 JULIETH BOONE DO Ot M85.88 OTH DISRD OF BONE DENSITY AND STRUCTURE, 04/17/2018 JULIETH BOONE DO Ot Z12.31 ENCNTR SCREEN MAMMOGRAM FOR MALIGNANT NE 04/17/2018 JULIETH BOONE DO Ot Z12.31 ENCNTR SCREEN MAMMOGRAM FOR MALIGNANT NE Procedures There is no data. Results Test Result Range Automated blood complete blood count (hemogram) panel - 04/17/18 16:27 Blood leukocytes automated count (number/volume) 6.7 10*3/uL 4.3-11.0 Blood erythrocytes automated count (number/volume) 4.10 10*6/uL 4.35-5.85 Venous blood hemoglobin measurement (mass/volume) 12.6 g/dL 11.5-16.0 Blood hematocrit (volume fraction) 37 % 35-52 Automated erythrocyte mean corpuscular volume 91 [foz_us] 80-99 Automated erythrocyte mean corpuscular hemoglobin (mass per erythrocyte) 31 pg 25-34 Automated erythrocyte mean corpuscular hemoglobin concentration measurement ( mass/volume) 34 g/dL 32-36 Automated erythrocyte distribution width ratio 12.6 % 10.0-14.5 Automated blood platelet count (count/volume) 269 10*3/uL 130-400 Automated blood platelet mean volume measurement 8.9 [foz_us] 7.4-10.4 Comprehensive metabolic panel - 04/17/18 16:27 Serum or plasma sodium measurement (moles/volume) 139 mmol/L 135-145 Serum or plasma potassium measurement (moles/volume) 4.3 mmol/L 3.6-5.0 Serum or plasma chloride measurement (moles/volume) 103 mmol/L 98-107 Carbon dioxide 24 mmol/L 21-32 Serum or plasma anion gap determination (moles/volume) 12 mmol/L 5-14 Serum or plasma urea nitrogen measurement (mass/volume) 16 mg/dL 7-18 Serum or plasma creatinine measurement (mass/volume) 1.43 mg/dL 0.60-1.30 Serum or plasma urea nitrogen/creatinine mass ratio 11 NRG Serum or plasma creatinine measurement with calculation of estimated glomerular filtration rate 36 NRG Serum or plasma glucose measurement (mass/volume) 97 mg/dL 70-105 Serum or plasma calcium measurement (mass/volume) 9.6 mg/dL 8.5-10.1 Serum or plasma total bilirubin measurement (mass/volume) 0.6 mg/dL 0.1-1.0 Serum or plasma alkaline phosphatase measurement (enzymatic activity/volume) 103 U/L 40-136 Serum or plasma aspartate aminotransferase measurement (enzymatic activity/ volume) 25 U/L 5-34 Serum or plasma alanine aminotransferase measurement (enzymatic activity/volume ) 13 U/L 0-55 Serum or plasma protein measurement (mass/volume) 7.4 g/dL 6.4-8.2 Serum or plasma albumin measurement (mass/volume) 4.0 g/dL 3.2-4.5 CALCIUM CORRECTED 9.6 mg/dL 8.5-10.1 Encounters ACCT No. Visit Date/Time Discharge Status Pt. Type Provider Facility Loc./Unit Complaint [id number] 01/02/2018 09:05:00 01/02/2018 23:59:59 CLS Outpatient JULIETH BOONE DO [facility] RAD SCREENING [id number] 12/14/2017 09:13:00 12/14/2017 14:00:00 DIS Outpatient FARZANA HARE MD [facility] ENDO HX DIVERTICULITIS/ EPIGASTRIC PAIN [id number] 12/07/2017 05:34:00 12/07/2017 11:26:00 DIS Outpatient FARZANA HARE MD [facility] PREOP COLONOSCOPY/EGD [id number] 10/06/2016 07:23:00 10/06/2016 23:59:59 CLS Outpatient JIMBO RAIN MD [facility] CARD CHEST PAIN SYNDROME [id number] 09/30/2016 09:24:00 09/30/2016 23:59:59 CLS Outpatient JIMBO RAIN MD [facility] RAD CHEST PAIN SYNDROME [id number] 09/23/2016 09:29:00 09/23/2016 23:59:59 CLS Outpatient JULIETH BOONE DO [facility] RAD HYPOVITAMINOSIS D, OSTEOPENIA OF THE ELDERLY [id number] 07/03/2015 12:45:00 07/03/2015 23:59:59 CLS Outpatient JULIETH BOONE DO [facility] RAD SCREENING [id number] 06/05/2015 14:42:00 06/05/2015 23:59:59 CLS Outpatient ESTHELA RIVERA [facility] RAD VISON CHANGES, HEADACHES [id number] 06/20/2014 10:41:00 06/20/2014 23:59:59 CLS Outpatient JULIETH BOONE DO [facility] RAD SCREENING, OSTEPOROSIS [id number] 05/08/2014 12:40:00 05/08/2014 23:59:59 CLS Outpatient RICK DOHERTY MD [facility] RAD RUQ PAIN,COLITIS [id number] 05/29/2013 10:10:00 05/29/2013 23:59:59 CLS Outpatient JULIETH BOONE DO [facility] RAD SCREENING [id number] 05/04/2013 09:16:00 05/04/2013 23:59:59 CLS Outpatient ANA TAYLOR MD [facility] RAD PELVIC PAIN [id number] 04/16/2013 07:50:00 04/16/2013 23:59:59 CLS Outpatient JULIETH BOONE DO [facility] RAD PELVIC PAIN [id number] 04/17/2018 17:31:00 ACT Inpatient FARZANA HARE MD [facility] 4TH DEHYDRATION [id number] 04/17/2018 16:13:00 ACT Outpatient FARZANA HARE MD [facility] RAD ABD PAIN,N/V,DIARHEA [id number] 10/03/2012 08:30:00 Document Registration [id number] 07/04/2012 09:11:00 Document Registration [id number] 07/04/2012 08:43:00 Document Registration [id number] 06/28/2012 11:15:00 Document Registration [id number] 06/09/2012 10:49:00 Document Registration [id number] 05/17/2011 09:52:00 Document Registration [id number] 11/23/2010 06:52:00 Document Registration [id number] 10/12/2010 07:45:00 Document Registration [id number] 09/18/2010 08:52:00 Document Registration [id number] 09/09/2010 08:47:00 Document Registration [id number] 04/16/2010 10:14:00 Document Registration [id number] 12/17/2009 13:48:00 Document Registration [id number] 05/23/2013 12:20:00 05/23/2013 23:59:59 CLS Outpatient SHWETHA JOHNSON APRN 06/20/2014 10:42:47 ACT Document Registration [id number] 04/19/2017 16:06:10 04/19/2017 23:59:59 [facility] Outpatient
[2018-04-17] MEDS ORDERED: NS 1000 ML IV BAG IV SCH (17:45)
[2018-04-17] MEDS ORDERED: ONDANSETRON 4 MG/2 ML (SDV) Z0FRAN IVP PRN (17:45)
[2018-04-17] MEDS ORDERED: NS IV 1000 ML 1,000 ML IV ONE (18:00)
[2018-04-17] MEDS ORDERED: metroNIDAZOLE 500MG/100ML IVPB 100 ML IV SCH ×2 (18:00→22:00)
[2018-04-17] MEDS ORDERED: CATHETER FLUSH 10 ML SYR IV PRN (18:00)
[2018-04-17 18:23] VITALS: BP 160/74
[2018-04-17] MEDS: CIPROFLOXACIN IV 400MG/200ML 200 ML IV SCH (18:53)
[2018-04-17] MEDS ORDERED: FLU QUADRIvalent (5+ YOA) 2018-2019 (AFLURIA) 0.5 ML IM ONE (19:00)
[2018-04-17] MEDS ORDERED: PATIENT MAY USE OWN MEDS, ALL MC SCH (19:00)
[2018-04-17] MEDS ORDERED: fentaNYL INJECTION 100 MCG/2 ML AMP IVP PRN (19:15)
--- NOTE | 2018-04-17 19:38 | HISTORY AND PHYSICAL ---
DATE OF SERVICE: ATTENDING PRIMARY CARE PHYSICIAN: Evelyn Woods MD HISTORY OF PRESENT ILLNESS: The patient is a 73-year-old female known to us. She has had a history of gastroesophageal reflux disease; however, symptoms were manageable with medical management. We did an EGD in 2010 which did show a hiatal hernia approximately 3 cm in size; however, biopsies were negative for H. pylori as well as negative for Shepherd's esophagus. She has also had a history of pain in the left lower abdominal quadrant and has had a history of mild diverticulitis in the past. She did undergo a colonoscopy on 12/14/2017 which showed moderate sigmoid diverticulosis with no inflammatory changes to indicate any diverticulitis. There were no polyps identified. She reports that she has had flu-like symptoms with crampy lower abdominal pain, mild fevers and chills and nausea. She states that this started approximately 2 to 3 days ago and has persisted. She reports that she is able to take down liquids; however, limited due to her nausea. She also reports abdominal distention. She is passing flatus, however, has not had a bowel movement. PAST MEDICAL HISTORY: Hypercholesterolemia, gastroesophageal reflux disease, hypertension, diverticulosis. PAST SURGICAL HISTORY: Total hysterectomy 1984. ALLERGIES: SULFA. MEDICATIONS: Atorvastatin 20 mg daily, metoprolol 50 mg daily, estradiol 1 mg daily, losartan 50 mg daily, fish oil daily. SOCIAL HISTORY: Negative smoke, negative alcohol. FAMILY HISTORY: Noncontributory. VITAL SIGNS: Temperature 97.5, blood pressure 160/74, pulse 72, respirations 16, pulse ox 99% on room air. REVIEW OF SYSTEMS: This is a well-nourished female in no acute distress. She does have some abdominal bloating as well as nausea; however, no episodes of vomiting. She reported that in the past 3 days that she has had some intermittent episodes of fevers and chills. She does state that she is passing flatus. No red blood per rectum, no dark tarry stools. No chest pain, palpitations, diaphoresis. No shortness of breath or difficulty breathing. All other review of systems negative. PHYSICAL EXAMINATION: CHEST: Clear. Good breath sounds bilaterally. HEART: Regular, no murmurs. EXTREMITIES: No lower extremity edema. Negative Homans sign. HEENT: No scleral icterus. NECK: No cervical lymphadenopathy. ABDOMEN: Soft, nondistended. There is mild distention with mild lower abdominal quadrant tenderness with no peritoneal signs. SKIN: Warm, dry. LABORATORY DATA: WBC 6.7, hemoglobin 12.6, hematocrit 37, platelets 269, BUN is 16, creatinine 1.34 with an estimated GFR of 36. Liver function enzymes are normal. ASSESSMENT AND PLAN: A 73-year-old female with gastroenteritis and possible colitis of unknown etiology. She is scheduled for CT scan; however, due to significant dehydration identified evident by low glomerular filtration rate, we will admit her for IV hydration. We will also proceed with blood cultures as well as a stool culture for Clostridium difficile. We will also treat her empirically with antibiotics with ciprofloxacin and Flagyl. We will repeat labs in the morning and proceed with a CT scan of the abdomen and pelvis with IV contrast. Job ID: [id number] DocumentID: [id number] Dictated Date: 04/17/2018 19:05:20 [employer] Date: 04/17/2018 19:38:09 Dictated By: FARZANA HARE MD MTDD
[2018-04-17] MEDS ORDERED: ATORVASTATIN 20 MG (LIPITOR) TABLET PO SCH (21:00)
[2018-04-17] MEDS: NS IV 1000 ML 1,000 ML IV SCH (21:49)
[2018-04-17 22:00] VITALS: BP 172/80
[2018-04-17] MEDS ORDERED: ACETAMINOPHEN 325 MG TABLET PO PRN (22:45)
[2018-04-18] VITALS: BP 157/70
[2018-04-18] MEDS: metroNIDAZOLE 500MG/100ML IVPB 100 ML IV SCH ×3 (02:17→14:24)
[2018-04-18 04:00] VITALS: BP 179/80
[2018-04-18] MEDS: CIPROFLOXACIN IV 400MG/200ML 200 ML IV SCH (06:09)
[2018-04-18] MEDS: NS IV 1000 ML 1,000 ML IV SCH ×2 (06:09→09:11)
[2018-04-18 06:15] LABS: BASOPHILS % (AUTO) 0 % (0-10); EOSINOPHILS % (AUTO) 1 % (0-10); HEMATOCRIT 33 % (35-52); HEMOGLOBIN 11.6 G/DL (11.5-16.0); LYMPHOCYTES # (AUTO) 1.5 X 10^3 (1.0-4.0); LYMPHOCYTES % (AUTO) 29 % (12-44); MEAN CORPUSCULAR HEMOGLOBIN 31 PG (25-34); MEAN CORPUSCULAR HGB CONC 35 G/DL (32-36); MEAN CORPUSCULAR VOLUME 90 FL (80-99); MEAN PLATELET VOLUME 8.8 FL (7.4-10.4); MONOCYTES # (AUTO) 0.5 X 10^3 (0.0-1.0); MONOCYTES % (AUTO) 9 % (0-12); NEUTROPHILS # (AUTO) 3.2 X 10^3 (1.8-7.8); NEUTROPHILS % (AUTO) 61 % (42-75); PLATELET COUNT 225 10^3/uL (130-400); RED BLOOD COUNT 3.69 10^6/uL (4.35-5.85); RED CELL DISTRIBUTION WIDTH 12.2 % (10.0-14.5); WHITE BLOOD COUNT 5.3 10^3/uL (4.3-11.0)
[2018-04-18 06:43] LABS: ALBUMIN 3.3 GM/DL (3.2-4.5); BILIRUBIN,TOTAL 0.4 MG/DL (0.1-1.0); CALCIUM 8.7 MG/DL (8.5-10.1); CREATININE SERUM 1.14 MG/DL (0.60-1.30); POTASSIUM 4.2 MMOL/L (3.6-5.0); TOTAL PROTEIN 5.8 GM/DL (6.4-8.2)
[2018-04-18] MEDS ORDERED: IOHEXOL 350 MG/ML 100 ML (OMNIPAQUE 350) VIAL IV ONE (07:45)
[2018-04-18] MEDS ORDERED: NS 250 ML (IVPB) BAG IV ONE (07:45)
[2018-04-18 08:00] VITALS: BP 120/70
[2018-04-18 08:11] LABS: BILIRUBIN,URINE NEGATIVE (NEGATIVE); CLARITY,URINE SLIGHTLY CLOUDY; COLOR,URINE YELLOW; GLUCOSE, URINE (UA) NEGATIVE (NEGATIVE); KETONES,URINE 2+ (NEGATIVE); LEUKOCYTE ESTERASE ,URINE 3+ (NEGATIVE); NITRITE,URINE NEGATIVE (NEGATIVE); PH,URINE 5 (5-9); PROTEIN,URINE NEGATIVE (NEGATIVE); UROBILINOGEN,URINE NORMAL (NORMAL)
[2018-04-18 08:33] LABS: BACTERIA,URINE NEGATIVE /HPF; RBC,URINE 0-2 /HPF; SQUAMOUS EPITHELIAL CELL,UR 0-2 /HPF
--- NOTE | 2018-04-18 08:59 | Diagnostic Imaging Report ---
PROCEDURE: CT of the abdomen with and without contrast and CT of the pelvis with contrast. TECHNIQUE: Precontrast acquisitions were acquired through the abdomen. Multiple contiguous axial images were obtained through the abdomen and pelvis after administration of intravenous contrast. INDICATION: Abdominal pain, diarrhea for 3-4 days. Correlation is made with prior CT from 04/16/2013. The lung bases are clear. No discrete liver mass is identified. The gallbladder is unremarkable. The pancreas is unremarkable. Spleen contains numerous calcified granulomas. 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 This was present on prior CT. No adrenal mass is identified. There is a low-density lesion identified in the renal hilum anteriorly in the lower pole. This does create a questionable filling defect in the calyx at this location on the delayed images and measures approximately 11 mm. Urothelial lesion cannot be entirely excluded. The left kidney is unremarkable. Aorta is calcified but not aneurysmal. No central, retroperitoneal or mesenteric lymphadenopathy is seen. The bowel loops are of normal caliber. No obstruction is seen. There is significant diverticulosis of the sigmoid colon. There does appear to be some wall thickening and perisigmoidal inflammatory changes involving a segment of the sigmoid colon suggestive of acute diverticulitis. No fluid collection is seen. No free air is identified. The bladder is unremarkable. No pelvic lymphadenopathy is seen. Impression: 1. Findings suggestive of acute sigmoid diverticulitis without evidence of abscess formation or bowel obstruction. 2. Filling defect noted within the right lower pole renal calyx. A urothelial lesion such as a transitional cell neoplasm cannot be entirely excluded. Urologic consultation and possible retrograde pyelography could be performed for further evaluation. Dictated by: Dictated on workstation # [id number]
[2018-04-18] MEDS ORDERED: ESTRADIOL 1 MG TAB (ESTRACE) PO SCH ×2 (09:00→21:00)
[2018-04-18] MEDS ORDERED: meTOproloL SUCCINATE 50 MG (TOPROL XL) TAB PO SCH (09:00)
[2018-04-18] MEDS ORDERED: PANTOPRAZOLE 40 MG (PROTONIX) VIAL IV SCH (09:00)
[2018-04-18] MEDS ORDERED: MENTHOL/ZINC OXIDE (CALMOSEPTINE) 113 GM TUBE TOP SCH (09:00)
[2018-04-18] MEDS ORDERED: LOSARTAN 50 MG (COZAAR) TAB PO SCH ×2 (09:00→21:00)
[2018-04-18] MEDS ORDERED: CIPR500T4 PO (10:27)
[2018-04-18] MEDS ORDERED: TRAV5DRO OD (10:27)
[2018-04-18] MEDS ORDERED: METR500T21 PO ×2 (10:27→15:35)
[2018-04-18] MEDS ORDERED: CHOL5000 PO (10:27)
[2018-04-18 12:00] VITALS: BP 166/73
--- NOTE | 2018-04-18 15:29 | Short Stay Summary ---
History of Present Illness History of Present Illness Reason for visit/HPI PT WAS A DIRECT ADMISSION BY DR. HARRISON AFTER A CT SCAN SHOWED ACUTE DIVERTICULITIS. THE PT HAD BEEN FEELING ILL FOR SEVERAL DAYS - HE HAD PRESCRIBED ORAL ANTIBIOTICS AND SHE WAS NOT IMPROVING AND HAVING NAUSEA. SHE WAS THEN ADMITTED TO THE HOSPITAL FOR IV ANTIBIOTICS, IV FLUIDS AND MONITORING OF HER SYMPTOMS. Date of Admission Apr 17, 2018 Date of Discharge 04/18/18 Time Seen by Provider: 16:00 Attending Physician Aditi Harrison MD Admitting Physician Harry Woods MD Consult Allergies and Home Medications Allergies Coded Allergies: niacin (Verified Allergy, Severe, HYPOTENSION/SYNCOPE, 12/07/17) Sulfa (Sulfonamide Antibiotics) (Verified Allergy, Mild, HIVES/RASH, ) Home Medications Atorvastatin Calcium 20 Mg Tablet, 20 MG PO DAILY, (Reported) Cholecalciferol (Vitamin D3) 5,000 Unit Capsule, 5,000 UNIT PO DAILY, (Reported) Ciprofloxacin HCl 500 Mg Tablet, 500 MG PO BID, (Reported) 7 DAY SUPPLY FILLED 04-15-18 Estradiol 1 Mg Tablet, 1 MG PO HS, (Reported) Lactobacillus Acidophilus 1 Each Capsule, 1 EACH PO BID Prescribed by: HARRY WOODS on 04/18/18 1535 Losartan Potassium 50 Mg Tablet, 50 MG PO HS, (Reported) Metoprolol Succinate 50 Mg Tab.er.24h, 50 MG PO DAILY, (Reported) Metronidazole 500 Mg Tablet, 500 MG PO TID pt to add to the metronidazole she already has at home - one pill three times daily x 7 more days Prescribed by: HARRY WOODS on 04/18/18 1535 [place]-3/Dha/Epa/Fish Oil 1 Each Capsule, 1,000 MG PO DAILY, (Reported) Travoprost 5 Ml Drops, 1 DROP OD HS, (Reported) Vit C/Vit E/Lutein/Min/[place]-3 1 Each Capsule, 1 CAP PO DAILY, (Reported) Patient Home Medication List Home Medication List Reviewed: Yes Past Vtgedsu-Qvejsd-Thlvpo Hx Patient Social History Marrital Status: Number of Children: 2 Number of living children: 2 Living Status: LIVES AT HOME WITH SPOUSE 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) Alcohol Use: Denies Use Recreational Drug Use: No Smoking Status: Never a Smoker 2nd Hand Smoke Exposure: No Physical Abuse Screen: No Sexual Abuse: No Recent Foreign Travel: No Contact w/other who traveled: No Recent Hopitalizations: No Recent Infectious Disease Expo: No Immunizations Up To Date Date of Pneumonia Vaccine: May 01, 2011 Date of Influenza Vaccine: May 16, 2017 Seasonal Allergies Seasonal Allergies: No Surgeries Yes (TOTAL HYSTERECTOMY) Hysterectomy Respiratory No Cardiovascular Yes High Cholesterol, Hypertension Neurological No Reproductive System Hx Reproductive Disorders: No Sexually Transmitted Disease: No HIV/AIDS: No 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 PLEATER 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: Hysterectomy Gastrointestinal Yes Gastroesophageal Reflux, Chronic Diarrhea Musculoskeletal No Endocrine History of Endocrine Disorders: No HEENT Loss of Vision: Bilateral Hearing Impairment: Denies Cancer Yes Skin Psychosocial History of Psychiatric Problem: No Integumentary History of Skin or Integumenta: No Blood Transfusions History of Blood Disorders: No Adverse Reaction to a Blood Tr: No (N/A) Reviewed Nursing Assessment Reviewed/Agree w Nursing PMH: Yes Family Medical History Significant Family History: Hypertension Review of Systems Constitutional: No chills, No fever; malaise, weakness EENTM: No hoarseness, No throat pain Respiratory: No cough, No dyspnea on exertion, No short of breath Cardiovascular: No chest pain, No edema Gastrointestinal: abdominal pain (LLQ) Genitourinary: no symptoms reported; No dysuria, No frequency, No hematuria Musculoskeletal: no symptoms reported; No muscle weakness Skin: No lesions, No rash Psychiatric/Neurological: Denies Anxiety, Denies Depressed All Other Systems Reviewed Negative Unless Noted: Yes Physical Exam Vital Signs Vital Signs - First Documented 04/17/18 18:23 Temp 97.5 Pulse 72 Resp 16 B/P (MAP) 160/74 (102) Pulse Ox 99 O2 Delivery Room Air Capillary Refill : Height, Weight, BMI Height: 5'1.00" Weight: 121lbs. 0.0oz. 54.057859ca; 22.9 BMI Method:Stated General Appearance: No Apparent Distress, WD/WN Eyes: Bilateral Eye Normal Inspection, Bilateral Eye PERRL, Bilateral Eye EOMI HEENT: PERRL/EOMI, Pharynx Normal Neck: Full Range of Motion, Supple Respiratory: Chest Non Tender, Lungs Clear, Normal Breath Sounds, No Accessory Muscle Use Cardiovascular: Regular Rate, Rhythm Gastrointestinal: Normal Bowel Sounds, Soft, Tenderness (LLQ) Rectal: Deferred Extremity: Normal Capillary Refill, No Pedal Edema Neurologic/Psychiatric: Alert, Oriented x3, No Motor/Sensory Deficits, Normal Mood/Affect Skin: Normal Color, Warm/Dry Lymphatic: No Adenopathy Clinical Quality Measures DVT/VTE Risk/Contraindication: Risk Factor Score Per Nursin RFS Level Per Nursing on Admit: 2=Moderate Short Stay Diagnosis Discharge Diagnosis-Short Stay Admission Diagnosis: SIGMOID DIVERTICULITIS ABDOMINAL PAIN NAUSEA Final Discharge Diagnosis: SIGMOID DIVERTICULITIS ABDOMINAL PAIN NAUSEA RENAL LESION HYPERTENSION HYPERLIPIDEMIA Conclusion Labs Laboratory Tests 04/17/18 22:17: Stool Occult Blood Immunoassay NEGATIVE 04/18/18 06:00: White Blood Count 5.3, Red Blood Count 3.69L, Hemoglobin 11.6, Hematocrit 33L, Mean Corpuscular Volume 90, Mean Corpuscular Hemoglobin 31, Mean Corpuscular Hemoglobin Concent 35, Red Cell Distribution Width 12.2, Platelet Count 225, Mean Platelet Volume 8.8, Neutrophils (%) (Auto) 61, Lymphocytes (%) (Auto) 29, Monocytes (%) (Auto) 9, Eosinophils (%) (Auto) 1, Basophils (%) (Auto) 0, Neutrophils # (Auto) 3.2, Lymphocytes # (Auto) 1.5, Monocytes # (Auto) 0.5, Eosinophils # (Auto) 0.0, Basophils # (Auto) 0.0, Sodium Level 141, Potassium Level 4.2, Chloride Level 113#H, Carbon Dioxide Level 20L, Anion Gap 8, Blood Urea Nitrogen 14, Creatinine 1.14, Estimat Glomerular Filtration Rate 46, BUN/ Creatinine Ratio 12, Glucose Level 89, Calcium Level 8.7, Corrected Calcium 9.3 , Total Bilirubin 0.4, Aspartate Amino Transf (AST/SGOT) 21, Alanine Aminotransferase (ALT/SGPT) 13, Alkaline Phosphatase 85, Total Protein 5.8L, Albumin 3.3 04/18/18 06:06: Urine Color YELLOW, Urine Clarity SLIGHTLY CLOUDY, Urine pH 5, Urine Specific [place] 1.015L, Urine Protein NEGATIVE, Urine Glucose (UA) NEGATIVE, Urine Ketones 2+H, Urine Nitrite NEGATIVE, Urine Bilirubin NEGATIVE, Urine Urobilinogen NORMAL, Urine Leukocyte Esterase 3+H, Urine RBC (Auto) 1+H, Urine RBC 0-2, Urine WBC 5-10H, Urine Squamous Epithelial Cells 0-2, Urine Crystals NONE, Urine Bacteria NEGATIVE, Urine Casts NONE, Urine Mucus NEGATIVE, Urine Culture Indicated YES Microbiology 04/17/18 C. difficile GD Antigen & Toxins - Final, Complete Conclusion/Plan SIGMOID DIVERTICULITIS - CONTINUE WITH CIPROFLOXACIN AND FLAGYL X 7 MORE DAYS ON DISCHARGE ABDOMINAL PAIN - IMPROVED - CONTINUE WITH SUPPORTIVE CARE NAUSEA - RESOLVED RENAL LESION - CONSULT WAS PLACED TO DR. TANG - HE WILL ADDRESS OUTPATIENT. HYPERTENSION - RESUME HOME MEDICATION ON DISCHARGE HYPERLIPIDEMIA - RESUME HOME MEDICATION ON DISCHARGE. HARRY WOODS MD Apr 18, 2018 15:29
[2018-04-18] MEDS ORDERED: LACT1CAP87 PO (15:35)
--- NOTE | 2018-04-18 15:41 | Discharge Inst-Complex ---
PDI Med Rec & Follow Up Appt. New Medications: Lactobacillus Acidophilus (Acidophilus Lactobacilli) 1 Each Capsule 1 EACH PO BID, #20 CAP Changed Medications: Metronidazole (Metronidazole) 500 Mg Tablet 500 MG PO TID, #15 TAB (Changed from: BID; Removed Days; 7 DAY THERAPY FILLED ) pt to add to the metronidazole she already has at home - one pill three times daily x 7 more days Continued Medications: Atorvastatin Calcium (Atorvastatin Calcium) 20 Mg Tablet 20 MG PO DAILY, TAB Cholecalciferol (Vitamin D3) (Vitamin D3) 5,000 Unit Capsule 5000 UNIT PO DAILY, CAP Ciprofloxacin HCl (Ciprofloxacin HCl) 500 Mg Tablet 500 MG PO BID for 7 Days, TAB 7 DAY SUPPLY FILLED 04-15-18 Estradiol (Estradiol Tablet) 1 Mg Tablet 1 MG PO HS, TAB Losartan Potassium (Losartan Potassium) 50 Mg Tablet 50 MG PO HS, TAB Metoprolol Succinate (Metoprolol Succinate) 50 Mg Tab.er.24h 50 MG PO DAILY, TAB [place]-3/Dha/Epa/Fish Oil (Fish Oil 1,000 mg Softgel) 1 Each Capsule 1000 MG PO DAILY, CAP Travoprost (Travatan Z) 5 Ml Drops 1 DROP OD HS, EA Vit C/Vit E/Lutein/Min/[place]-3 (Ocuvite Softgel) 1 Each Capsule 1 CAP PO DAILY, CAP Prescription: Transmitted to Pharmacy Activity, Diet and PDI Resume Normal Activity: Yes Discharge Diet: Low Residue Symptoms to Reoprt to : Appetite Changes, Fever Over 101 Degrees F, Pain/ Pressure in Chest, Diarrhea(Persistant), Nausea/Vomiting, Shortness of Breath For Problems or Questions: Contact Your Physician, Go to Emergency Room Infection Signs and Symptoms: Temperature Above 101 F HARRY SALCIDO MD Apr 18, 2018 15:41
--- NOTE | 2018-04-18 17:02 | CONSULTATION REPORT ---
DATE OF SERVICE: 04/18/2018 ATTENDING PHYSICIAN: Aditi Harrison MD SUMMARY: A 73-year-old white lady admitted by Dr. Harrison because of symptoms of abdominal pain, question diverticulitis and treated accordingly. The patient underwent a CT scan of the abdomen and pelvis without and with IV contrast and showed a filling defect in the right lower pole calyx of the kidney, no evidence of stones. The patient denies any voiding symptoms. Denies gross hematuria. She has no microscopic hematuria. She had history a long time ago of UTIs and DUS and underwent urethral dilatation by Dr. Gómez that was years ago. ALLERGIES: SULFA. PAST SURGICAL HISTORY: Total abdominal hysterectomy and bilateral salpingo-oophorectomy. PAST MEDICAL HISTORY: Hypercholesterolemia, hiatal hernia, hypertension, gastroesophageal reflux disease, and diverticulosis. MEDICATIONS: She is on Lipitor 20 mg daily, estradiol 1 mg daily, losartan 50 mg daily, fish oil daily, metoprolol 50 mg daily. She is actually now on Cipro and Flagyl. SOCIAL HISTORY: , has 2 girls. No smoking, no alcohol, no drugs. FAMILY HISTORY: Noncontributory. PHYSICAL EXAMINATION: VITAL SIGNS: Per chart. GENERAL: Well nourished, well developed, in no acute distress. HEAD: Normocephalic. ENT: Unremarkable. NECK: Supple. No bruits. CHEST: Clear, nontender. HEART: Regular rate and rhythm, no murmurs. ABDOMEN: Soft, mild tenderness in the lower abdomen. No rebound. SKIN: Warm and dry. EXTREMITIES: Lower extremity, no edema or cyanosis. NEUROLOGIC: Grossly intact. Oriented x3. LABORATORY DATA: Labs were reviewed. CT scan was reviewed. IMPRESSION: 1. Right renal calyceal lower pole filling defect, rule out transitional cell carcinoma. 2. Acute diverticulitis with history of diverticulosis. 3. History of gastroesophageal reflux disease and hiatal hernia. 4. Hypertension. 5. Hypercholesterolemia. PLAN: We will let her recover from her problem now, no problem letting her go home. We will see her back at the office on 05/01 and we will plan at that time to bring her as an outpatient for surgery, do a retrograde right side pyelogram, brush biopsy, cytology and attempt to do a ureteroscopy. The plan was explained to the patient. Job ID: [id number] DocumentID: [id number] Dictated Date: 04/18/2018 14:15:01 Director Of Creative Services Date: 04/18/2018 17:01:56 Dictated By: KARIN TANG MD
--- NOTE | 2018-04-18 18:27 | Progress Note (SOAP) ---
Subjective Date Seen by a Provider: Apr 18, 2018 Time Seen by a Provider: 12:00 Subjective/Events-last exam doing much better clinically. no abd pain. no nausea/vomiting and feels hungry. no fever/chills. Objective Exam Vital Signs Date Time Temp Pulse Resp B/P (MAP) Pulse Ox O2 Delivery O2 Flow Rate FiO2 04/18/18 12:00 98.4 71 11 166/73 (104) 99 Room Air 04/18/18 08:00 97.7 71 10 120/70 (87) 97 Room Air 04/18/18 08:00 Room Air 04/18/18 04:00 98.1 79 16 179/80 (113) 98 Room Air 04/18/18 00:00 98.0 75 21 157/70 (99) 96 Room Air 04/17/18 22:00 98.2 76 20 172/80 (110) 100 Room Air 04/17/18 20:00 Room Air 04/17/18 18:23 97.5 72 16 160/74 (102) 99 Room Air I & O 04/18/18 07:00 Intake Total 3350 ml Balance 3350 ml Capillary Refill : General Appearance: No Apparent Distress HEENT: PERRL/EOMI Neck: Full Range of Motion Respiratory: Chest Non Tender, Lungs Clear Cardiovascular: Regular Rate, Rhythm Gastrointestinal: normal bowel sounds, non tender, soft Extremity: Normal Capillary Refill Neurologic/Psychiatric: Alert, Oriented x3 Skin: Normal Color Lymphatic: No Adenopathy Results Lab Laboratory Tests 04/17/18 22:17: Stool Occult Blood Immunoassay NEGATIVE 04/18/18 06:00: White Blood Count 5.3, Red Blood Count 3.69L, Hemoglobin 11.6, Hematocrit 33L, Mean Corpuscular Volume 90, Mean Corpuscular Hemoglobin 31, Mean Corpuscular Hemoglobin Concent 35, Red Cell Distribution Width 12.2, Platelet Count 225, Mean Platelet Volume 8.8, Neutrophils (%) (Auto) 61, Lymphocytes (%) (Auto) 29, Monocytes (%) (Auto) 9, Eosinophils (%) (Auto) 1, Basophils (%) (Auto) 0, Neutrophils # (Auto) 3.2, Lymphocytes # (Auto) 1.5, Monocytes # (Auto) 0.5, Eosinophils # (Auto) 0.0, Basophils # (Auto) 0.0, Sodium Level 141, Potassium Level 4.2, Chloride Level 113#H, Carbon Dioxide Level 20L, Anion Gap 8, Blood Urea Nitrogen 14, Creatinine 1.14, Estimat Glomerular Filtration Rate 46, BUN/ Creatinine Ratio 12, Glucose Level 89, Calcium Level 8.7, Corrected Calcium 9.3 , Total Bilirubin 0.4, Aspartate Amino Transf (AST/SGOT) 21, Alanine Aminotransferase (ALT/SGPT) 13, Alkaline Phosphatase 85, Total Protein 5.8L, Albumin 3.3 04/18/18 06:06: Urine Color YELLOW, Urine Clarity SLIGHTLY CLOUDY, Urine pH 5, Urine Specific [place] 1.015L, Urine Protein NEGATIVE, Urine Glucose (UA) NEGATIVE, Urine Ketones 2+H, Urine Nitrite NEGATIVE, Urine Bilirubin NEGATIVE, Urine Urobilinogen NORMAL, Urine Leukocyte Esterase 3+H, Urine RBC (Auto) 1+H, Urine RBC 0-2, Urine WBC 5-10H, Urine Squamous Epithelial Cells 0-2, Urine Crystals NONE, Urine Bacteria NEGATIVE, Urine Casts NONE, Urine Mucus NEGATIVE, Urine Culture Indicated YES Microbiology 04/17/18 C. difficile [facility]DH Antigen & Toxins - Final, Complete 04/18/18 Urine Culture - Preliminary, Resulted Sent To [facility] Assessment/Plan Assessment/Plan Assess & Plan/Chief Complaint acute diverticulitis and dehydration. CT revealed incidental filling defect right kidney. patient does have hx of previous UTI's and uretheral stricture requiring dilation. clinically much improved with IV fluid hydration and abx. start low residue diet. consult urology who was consulted today. if patient can tolerate diet and liquids, may be discharged home and the kidney lesion will be evaluated as OP. Clinical Quality Measures DVT/VTE Risk/Contraindication: Risk Factor Score Per Nursin RFS Level Per Nursing on Admit: 2=Moderate FARZANA HARE MD Apr 18, 2018 18:27
== END 2018-04-18 16:30 | disposition home or self-care (01) | DRG 641 ==
LOC: UNDOADMIN 17:22 → 4TH 17:22 → EDSTATUS 17:31 → UNDOADMOB 17:31 → 4TH 17:31 → OBSVTOIN 04-18 10:14 → INTOOBSV 04-18 10:14 → UNDODISIN 04-18 16:30
PROVIDERS: ADMIT Surgery; ATTEND Surgery
DX: E86.0 Dehydration (principal); K57.32 Diverticulitis of large intestine without perforation or abscess without bleeding; I10 Essential (primary) hypertension; E78.00 Pure hypercholesterolemia, unspecified; K21.9 Gastro-esophageal reflux disease without esophagitis; R93.421 Abnormal radiologic findings on diagnostic imaging of right kidney; Z87.440 Personal history of urinary (tract) infections
CPT/HCPCS: 36415; 74178; 80053; 81000; 82274; 85025; 87088; 87324; 87328; 87329; 87449; 99211; G0378

== ENCOUNTER → 2018-04-17 | Outpatient (CLI) | payer MEDICARE ==
[~2018-04-17] MED LIST changes: +CHOL5000 PO; +CIPR500T4 PO; +LACT1CAP87 PO; -LOSA50TA36 PO; +LOSA50TA7 PO; +METR500T21 PO; +TRAV5DRO OD
[2018-04-17 16:30] LABS: HEMOGLOBIN 12.6 G/DL (11.5-16.0); MEAN PLATELET VOLUME 8.9 FL (7.4-10.4); RED BLOOD COUNT 4.1 10^6/uL (4.35-5.85); RED CELL DISTRIBUTION WIDTH 12.6 % (10.0-14.5); WHITE BLOOD COUNT 6.7 10^3/uL (4.3-11.0)
[2018-04-17 16:47] LABS: BILIRUBIN,TOTAL 0.6 MG/DL (0.1-1.0); CALCIUM 9.6 MG/DL (8.5-10.1); CREATININE SERUM 1.43 MG/DL (0.60-1.30); POTASSIUM 4.3 MMOL/L (3.6-5.0); TOTAL PROTEIN 7.4 GM/DL (6.4-8.2)
== END ==
LOC: RAD 16:13
PROVIDERS: ATTEND Surgery
DX: R10.9 Unspecified abdominal pain (principal); R11.2 Nausea with vomiting, unspecified; R19.7 Diarrhea, unspecified; Z53.8 Procedure and treatment not carried out for other reasons
CPT/HCPCS: 36415; 80053; 85027

== ENCOUNTER 2018-05-10 11:54 | Outpatient (CLI) | payer MEDICARE ==
[~2018-05-10] VITALS: Ht 154.9 cm; Wt 50.8 kg
[~2018-05-10 11:54] MED LIST changes: +CHOL5000 PO; +CIPR500T4 PO; +LACT1CAP87 PO; +METR500T21 PO; +TRAV5DRO OD
== END 2018-05-10 12:26 | disposition home or self-care (01) ==
LOC: PREOP 11:54
PROVIDERS: ATTEND Urology
DX: Z01.818 Encounter for other preprocedural examination (principal)
CPT/HCPCS: 87081

== ENCOUNTER 2018-05-16 06:10 | Day surgery (SDC) | payer MEDICARE ==
[~2018-05-16] VITALS: Ht 154.9 cm; Wt 50.8 kg
--- OUTSIDE RECORDS SUMMARY | 2018-05-16 06:22 | XMS REPORT | Continuity of Care Document ---
Author Author [facility] Organization [facility] Address Unknown Phone Unavailable Allergies Active Description Code Type Severity Reaction Onset Reported/Identified Relationship to Patient Clinical Status Yes Sulfa (Sulfonamide Antibiotics) [id number] Drug Allergy Unknown N/A 2007 Yes niacin [id number] Drug Allergy Severe HYPOTENSION/SYN 05/10/2018 Yes Sulfa (Sulfonamide Antibiotics) [id number] Drug Allergy Mild HIVES/RASH 05/2018 Medications There is no data. Problems Date [...] DOA C Ot V76.12 06/30/2015 ESTHELA RIVERA POWER MARKETER Ot H53.9 06/30/2015 ESTHELA RIVERA POWER MARKETER Ot R51 07/03/2015 ESTHELA RIVERA POWER MARKETER Ot H53.9 07/03/2015 ESTHELA RIVERA POWER MARKETER Ot R51 07/23/2015 MELY [place] JULIETH C [...] Deleon Ot 558.9 NONINF GASTROENTERIT NEC 09/23/2016 CHSA LE, RICK Deleon Ot 789.01 ABDOMINAL PAIN, RIGHT UPPER QUADRANT 09/23/2016 IMELDA BOONE DOA C Ot 733.90 BONE CARTILAGE DIS NOS 09/23/2016 BOONE DO JULIETH C Ot V76.12 OTH SCREEN MAMMO-MALIGN NEOPLASM OF [place]IS 09/23/2016 ESTHELA RIVERA POWER MARKETER Ot H53.9 UNSPECIFIED VISUAL DISTURBANCE 09/23/2016 ESTHELA RIVERA POWER MARKETER Ot R51 HEADACHE 09/23/2016 BOONE DOMIELDAA C Ot Z12.31 ENCNTR SCREEN MAMMOGRAM FOR [...] MAMMO-MALIGN NEOPLASM OF [place] 12/07/2017 ESTHELA RIVERA POWER MARKETER Ot H53.9 UNSPECIFIED VISUAL DISTURBANCE 12/07/2017 ESTHELA RIVERA POWER MARKETER Ot R51 HEADACHE 12/07/2017 BOONE DO JULIETH [...] 12/14/2017 FARZANA HARE MD, Ot Z79.899 OTHER COMMERCIAL PROPERTY ADMINISTRATOR (CURRENT) DRUG THERAPY 12/14/2017 FARZANA HARE MD [...] 12/16/2017 FARZANA HARE MD Ot Z79.899 OTHER RETIREMENT (CURRENT) DRUG THERAPY 12/16/2017 FARZANA HARE MD [...] 12/21/2017 FARZANA HARE MD Ot Z79.899 OTHER COMMERCIAL PROPERTY ADMINISTRATOR (CURRENT) DRUG THERAPY 12/21/2017 FARZANA HARE MD [...] GENITAL SYMPTOMS NOS 04/17/2018 CLAUDIA LE, ANA Betty Ot 625.9 FEM GENITAL SYMPTOMS NOS 04/17/2018 BOONE DOIMELDAA C Ot V76.12 OTH SCREEN MAMMO-MALIGN NEOPLASM OF KANDIS 04/17/2018 CHAS LE, RICK Deleon Ot 558.9 NONINF GASTROENTERIT NEC 04/17/2018 RICK DOHERTY MD Ot 789.01 ABDOMINAL PAIN, RIGHT UPPER QUADRANT 04/17/2018 MELY DO JULIETH C Ot 733.90 BONE CARTILAGE DIS NOS 04/17/2018 BOONE DO JULIETH C Ot V76.12 OTH SCREEN MAMMO-MALIGN NEOPLASM OF K[place]IS 04/17/2018 ESTHELA RIVERA POWER MARKETER Ot H53.9 UNSPECIFIED VISUAL DISTURBANCE 04/17/2018 ESTHELA RIVERA POWER MARKETER Ot R51 HEADACHE 04/17/2018 JULIETH BOONE DO [...] Ot E55.9 VITAMIN D DEFICIENCY, UNSPECIFIED 04/17/2018 BOONEJULIETH Kahn DO Ot M85.88 OTH DISRD OF BONE DENSITY AND STRUCTURE, 04/17/2018 IMELDA BOONE DOA Yuliana Ot Z12.31 ENCNTR SCREEN MAMMOGRAM FOR MALIGNANT NE 04/17/2018 JULIETH BOONE DO Ot Z12.31 ENCNTR SCREEN MAMMOGRAM FOR MALIGNANT NE 04/18/2018 FARZANA HARE MD Ot R10.9 UNSPECIFIED ABDOMINAL PAIN 04/18/2018 FARZANA HARE MD Ot R11.2 NAUSEA WITH VOMITING, UNSPECIFIED 04/18/2018 FARZANA HARE MD Ot R19.7 DIARRHEA, UNSPECIFIED 04/18/2018 PAYAM LE, FARZANA Ot Z53.8 PROCEDURE AND TREATMENT NOT CARRIED OUT 04/18/2018 FARZANA HARE MD Ot E78.00 PURE HYPERCHOLESTEROLEMIA, UNSPECIFIED 04/18/2018 FARZANA HARE MD Ot E86.0 DEHYDRATION 04/18/2018 FARZANA HARE MD Ot I10 ESSENTIAL (PRIMARY) HYPERTENSION 04/18/2018 FARZANA HARE MD Ot K21.9 GASTRO-ESOPHAGEAL REFLUX DISEASE WITHOUT 04/18/2018 FARZANA HARE MD Ot K57.32 DVTRCLI OF LG INT W/O PERFORATION OR ABS 04/18/2018 FARZANA HARE MD Ot R93.421 ABNORMAL RADIOLOGIC FINDINGS ON DX IMAGI 04/18/2018 FARZANA HARE MD Ot Z87.440 PERSONAL HISTORY OF URINARY (TRACT) INFE 04/21/2018 FARZANA HARE MD Ot E78.00 PURE HYPERCHOLESTEROLEMIA, UNSPECIFIED 04/21/2018 FARZANA HARE MD Ot E86.0 DEHYDRATION 04/21/2018 FARZANA HARE MD Ot I10 ESSENTIAL (PRIMARY) HYPERTENSION 04/21/2018 FARZANA HARE MD Ot K21.9 GASTRO-ESOPHAGEAL REFLUX DISEASE WITHOUT 04/21/2018 FARZANA HARE MD Ot K57.32 DVTRCLI OF LG INT W/O PERFORATION OR ABS 04/21/2018 FARZANA HARE MD Ot R93.421 ABNORMAL RADIOLOGIC FINDINGS ON DX IMAGI 04/21/2018 FARZANA HARE MD Ot Z87.440 PERSONAL HISTORY OF URINARY (TRACT) INFE 04/21/2018 FARZANA HARE MD Ot E78.00 PURE HYPERCHOLESTEROLEMIA, UNSPECIFIED 04/21/2018 FARZANA HARE MD Ot E86.0 DEHYDRATION 04/21/2018 FARZANA HARE MD Ot I10 ESSENTIAL (PRIMARY) HYPERTENSION 04/21/2018 FARZANA HARE MD Ot K21.9 GASTRO-ESOPHAGEAL REFLUX DISEASE WITHOUT 04/21/2018 FARZANA HARE MD Ot K57.32 DVTRCLI OF LG INT W/O PERFORATION OR ABS 04/21/2018 FARZANA HARE MD, Ot R93.421 ABNORMAL RADIOLOGIC FINDINGS ON DX IMAGI 04/21/2018 FARZANA HARE MD, Ot Z87.440 PERSONAL HISTORY OF URINARY (TRACT) INFE 04/21/2018 FARZANA HARE MD, Ot E78.00 PURE HYPERCHOLESTEROLEMIA, UNSPECIFIED 04/21/2018 FARZANA HARE MD, Ot E86.0 DEHYDRATION 04/21/2018 FARZANA HARE MD, Ot I10 ESSENTIAL (PRIMARY) HYPERTENSION 04/21/2018 FARZANA HARE MD, Ot K21.9 GASTRO-ESOPHAGEAL REFLUX DISEASE WITHOUT 04/21/2018 FARZANA HARE MD, Ot K57.32 DVTRCLI OF LG INT W/O PERFORATION OR ABS 04/21/2018 FARZANA HARE MD, Ot R93.421 ABNORMAL RADIOLOGIC FINDINGS ON DX IMAGI 04/21/2018 FARZANA HARE MD, Ot Z87.440 PERSONAL HISTORY OF URINARY (TRACT) INFE 05/11/2018 KARIN TANG MD Ot Z01.818 ENCOUNTER FOR OTHER PREPROCEDURAL EXAMIN 05/11/2018 KARIN TANG MD, Ot Z01.818 ENCOUNTER FOR OTHER PREPROCEDURAL EXAMIN Procedures There is no data. Results Test [...] g/dL 3.2-4.5 CALCIUM CORRECTED 9.6 mg/dL 8.5-10.1 C DIFFICILE AG + TOXIN A/B. - 04/17/18 22:10 RESULTS NEGATIVE FOR ANTIGEN AND TOXIN A/B [facility] Stool occult blood screen - 04/17/18 22:17 Stool gastrointestinal hemoglobin detection NEGATIVE NEGATIVE [id number] - 04/17/18 22:17 Complete blood count (CBC) with automated white blood cell (WBC) differential - 04/18/18 06:00 Blood leukocytes automated count (number/volume) 5.3 10*3/uL 4.3-11.0 Blood erythrocytes automated count (number/volume) 3.69 10*6/uL 4.35-5.85 Venous blood hemoglobin measurement (mass/volume) 11.6 g/dL 11.5-16.0 Blood hematocrit (volume fraction) 33 % 35-52 Automated erythrocyte mean corpuscular volume 90 [foz_us] 80-99 Automated erythrocyte mean corpuscular hemoglobin (mass per erythrocyte) 31 pg 25-34 Automated erythrocyte mean corpuscular hemoglobin concentration measurement ( mass/volume) 35 g/dL 32-36 Automated erythrocyte distribution width ratio 12.2 % 10.0-14.5 Automated blood platelet count (count/volume) 225 10*3/uL 130-400 Automated blood platelet mean volume measurement 8.8 [foz_us] 7.4-10.4 Automated blood neutrophils/100 leukocytes 61 % 42-75 Automated blood lymphocytes/100 leukocytes 29 % 12-44 Blood monocytes/100 leukocytes 9 % 0-12 Automated blood eosinophils/100 leukocytes 1 % 0-10 Automated blood basophils/100 leukocytes 0 % 0-10 Blood neutrophils automated count (number/volume) 3.2 10*3 1.8-7.8 Blood lymphocytes automated count (number/volume) 1.5 10*3 1.0-4.0 Blood monocytes automated count (number/volume) 0.5 10*3 0.0-1.0 Automated eosinophil count 0.0 10*3/uL 0.0-0.3 Automated blood basophil count (count/volume) 0.0 10*3/uL 0.0-0.1 Comprehensive metabolic panel - 04/18/18 06:00 Serum or plasma sodium measurement (moles/volume) 141 mmol/L 135-145 Serum or plasma potassium measurement (moles/volume) 4.2 mmol/L 3.6-5.0 Serum or plasma chloride measurement (moles/volume) 113 mmol/L 98-107 Carbon dioxide 20 mmol/L 21-32 Serum or plasma anion gap determination (moles/volume) 8 mmol/L 5-14 Serum or plasma urea nitrogen measurement (mass/volume) 14 mg/dL 7-18 Serum or plasma creatinine measurement (mass/volume) 1.14 mg/dL 0.60-1.30 Serum or plasma urea nitrogen/creatinine mass ratio 12 NRG Serum or plasma creatinine measurement with calculation of estimated glomerular filtration rate 46 NRG Serum or plasma glucose measurement (mass/volume) 89 mg/dL 70-105 Serum or plasma calcium measurement (mass/volume) 8.7 mg/dL 8.5-10.1 Serum or plasma total bilirubin measurement (mass/volume) 0.4 mg/dL 0.1-1.0 Serum or plasma alkaline phosphatase measurement (enzymatic activity/volume) 85 U/L 40-136 Serum or plasma aspartate aminotransferase measurement (enzymatic activity/ volume) 21 U/L 5-34 Serum or plasma alanine aminotransferase measurement (enzymatic activity/volume ) 13 U/L 0-55 Serum or plasma protein measurement (mass/volume) 5.8 g/dL 6.4-8.2 Serum or plasma albumin measurement (mass/volume) 3.3 g/dL 3.2-4.5 CALCIUM CORRECTED 9.3 mg/dL 8.5-10.1 Complete urinalysis with reflex to culture - 04/18/18 06:06 Urine color determination YELLOW NRG Urine clarity determination SLIGHTLY CLOUDY NRG Urine pH measurement by test strip 5 5-9 Specific gravity of urine by test strip 1.015 1.016- 1.022 Urine protein assay by test strip, semi-quantitative NEGATIVE NEGATIVE Urine glucose detection by automated test strip NEGATIVE NEGATIVE Erythrocytes detection in urine sediment by light microscopy 1+ NEGATIVE Urine ketones detection by automated test strip 2+ NEGATIVE Urine nitrite detection by test strip NEGATIVE NEGATIVE Urine total bilirubin detection by test strip NEGATIVE NEGATIVE Urine urobilinogen measurement by automated test strip (mass/volume) NORMAL NORMAL Urine leukocyte esterase detection by dipstick 3+ NEGATIVE Automated urine sediment erythrocyte count by microscopy (number/high power field) [HPF] NRG Automated urine sediment leukocyte count by microscopy (number/high power field ) [HPF] NRG Bacteria detection in urine sediment by light microscopy NEGATIVE NRG Squamous epithelial cells detection in urine sediment by light microscopy 0-2 NRG Crystals detection in urine sediment by light microscopy NONE NRG Casts detection in urine sediment by light microscopy NONE NRG Mucus detection in urine sediment by light microscopy NEGATIVE NRG Complete urinalysis with reflex to culture YES NRG Bacterial urine culture - 04/18/18 06:06 Bacterial urine culture NG NRG Methicillin resistant Staphylococcus aureus (MRSA) screening culture - 12:20 Methicillin resistant Staphylococcus aureus (MRSA) screening culture NEG NRG Encounters ACCT No. Visit Date/Time Discharge Status Pt. Type Provider Facility Loc./Unit Complaint [id number] 05/10/2018 11:54:00 05/10/2018 12:26:00 DIS Outpatient KITTY LE, KARIN A [facility] PREOP RIGHT RENAL LESION [id number] 04/18/2018 10:14:00 04/18/2018 16:30:00 DIS Outpatient FARZANA HARE MD [facility] 4TH DEHYDRATION [id number] 04/17/2018 16:13:00 04/17/2018 23:59:59 CLS Outpatient FARZANA HARE MD [facility] RAD ABD PAIN,N/V,DIARHEA [id number] 01/02/2018 09:05:00 01/02/2018 23:59:59 CLS Outpatient JULIETH BOONE DO [facility] RAD SCREENING [id number] 12/14/2017 09:13:00 12/14/2017 14:00:00 DIS Outpatient FARZANA HARE MD [facility] ENDO HX DIVERTICULITIS/ EPIGASTRIC PAIN [id number] 12/07/2017 05:34:00 12/07/2017 11:26:00 DIS Outpatient FARZANA HARE MD [facility] PREOP COLONOSCOPY/EGD [id number] 10/06/2016 07:23:00 10/06/2016 23:59:59 CLS Outpatient JIMBO RAIN MD [facility] CARD CHEST PAIN SYNDROME [id number] 09/30/2016 09:24:00 09/30/2016 23:59:59 CLS Outpatient JIMBO RAIN MD [facility] RAD CHEST PAIN SYNDROME [id number] 09/23/2016 09:29:00 09/23/2016 23:59:59 CLS Outpatient JULIETH BOONE DO [facility] RAD HYPOVITAMINOSIS D, OSTEOPENIA OF THE ELDERLY [id number] 07/03/2015 12:45:00 07/03/2015 23:59:59 CLS Outpatient JULIETH BOONE DO [facility] RAD SCREENING [id number] 06/05/2015 14:42:00 06/05/2015 23:59:59 CLS Outpatient ESTHELA RIVERA [facility] RAD VISON CHANGES, HEADACHES [id number] 06/20/2014 10:41:00 06/20/2014 23:59:59 CLS Outpatient JULIETH BOONE DO [facility] RAD SCREENING, OSTEPOROSIS [id number] 05/08/2014 12:40:00 05/08/2014 23:59:59 CLS Outpatient RICK DOHERTY MD [facility] RAD RUQ PAIN,COLITIS [id number] 05/29/2013 10:10:00 05/29/2013 23:59:59 CLS Outpatient JULIETH BOONE DO [facility] RAD SCREENING [id number] 05/04/2013 09:16:00 05/04/2013 23:59:59 CLS Outpatient ANA TAYLOR MD [facility] RAD PELVIC PAIN [id number] 04/16/2013 07:50:00 04/16/2013 23:59:59 CLS Outpatient BOONE DOJULIETH [facility] RAD PELVIC PAIN [id number] 05/16/2018 08:00:00 PEN Preadmit KARIN TANG MD [facility] SDC RIGHT RENAL LESION [id number] 10/03/2012 08:30:00 Document Registration [id number] 07/04/2012 09:11:00 Document Registration [id number] 07/04/2012 08:43:00 Document Registration [id number] 06/28/2012 11:15:00 Document Registration [id number] 06/09/2012 10:49:00 Document Registration [id number] 05/17/2011 09:52:00 Document Registration [id number] 11/23/2010 06:52:00 Document Registration [id number] 10/12/2010 07:45:00 Document Registration [id number] 09/18/2010 08:52:00 Document Registration [id number] 09/09/2010 08:47:00 Document Registration [id number] 04/16/2010 10:14:00 Document Registration [id number] 12/17/2009 13:48:00 Document Registration [id number] 05/23/2013 12:20:00 05/23/2013 23:59:59 CLS Outpatient SHWETHA JOHNSON APRN 06/20/2014 10:42:47 ACT Document Registration [id number] 04/19/2017 16:06:10 04/19/2017 23:59:59 [facility] Outpatient
[2018-05-16] MEDS: LACTATED RINGERS 1,000 ML IV PRN ×2 (06:30→08:10)
[2018-05-16] MEDS ORDERED: cefTRIAXone FOR IV USE 1,000 MG in NS (IVPB) 50 ML IV ONE (06:30)
[2018-05-16] MEDS ORDERED: ONDANSETRON 4 MG/2 ML (SDV) Z0FRAN ONE (06:47)
[2018-05-16] MEDS ORDERED: LIDOCAINE PF 2% 5 ML (XYLOCAINE) VIAL ONE (06:47)
[2018-05-16] MEDS ORDERED: fentaNYL INJECTION 100 MCG/2 ML AMP ONE ×2 (06:47→08:23)
[2018-05-16] MEDS ORDERED: proPOfol 200 MG/20 ML (DIPRIVAN) VIAL IV ONE (06:47)
[2018-05-16] MEDS ORDERED: MIDAZOLAM 2 MG/2 ML (VERSED) VIAL ONE (06:47)
[2018-05-16] MEDS ORDERED: DEXAMETHASONE 10 MG/ML (DECADRON) 1 ML VIAL ONE (06:47)
[2018-05-16] MEDS ORDERED: ROCURONIUM 10 MG/ML 5 ML SYRINGE IV ONE (06:53)
[2018-05-16] MEDS ORDERED: SEVOFLURANE (ULTANE) 15 ML INHAL SOLN ONE (06:53)
--- NOTE | 2018-05-16 07:12 | Progress Note-Pre Operative ---
Pre-Operative Progress Note H&P Reviewed The H&P was reviewed, patient examined and no changes noted. Date Seen by Provider: May 16, 2018 Time Seen by Provider: 07:11 Date H&P Reviewed: May 16, 2018 Time H&P Reviewed: 07:11 Pre-Operative Diagnosis: RT RENAL LOWER CALYCEAL LESION KARIN TANG MD May 16, 2018 7:12 am
[2018-05-16 07:33] VITALS: BP 176/76
[2018-05-16] MEDS ORDERED: NEOSTIGMINE 1 MG/ML 5 ML SYRINGE ONE (07:58)
[2018-05-16] MEDS ORDERED: GLYCOPYRROLATE 0.2 MG/ML (ROBINUL) 2 ML VIAL ONE (07:58)
--- NOTE | 2018-05-16 08:18 | Progress Note-Post Operative ---
Post-Operative Progess Note Surgeon (s)/Senior Enlisted Advisor (s) Surgeon KARIN TANG MD Senior Enlisted Advisor: NONE Pre-Operative Diagnosis RT RENAL LOWER CALYCEAL LESION Post-Operative Diagnosis 1. SAME 2. RT UPJ OBSTRUCTION 3. VAGINAL PROLAPSE Procedure & Operative Findings Date of Procedure 05/16/18 Procedure Performed/Findings CYSTOSCOPY WITH RT URETERAL CATHETERIZATION, CYTOLOGY, BARBOTAGE CYTOLOGY, AND RETROGRADE UROGRAM Anesthesia Type GENERAL Estimated Blood Loss Estimated blood loss (mL): NONE Specimens/Packing Specimens Removed 1. RT RENAL URINE CYTOLOGY 2. RT RENAL URINE BARBOTAGE CYTOLOGY Packing: NONE KARIN TANG MD May 16, 2018 8:18 am
--- NOTE | 2018-05-16 08:20 | Discharge Inst-Urology ---
Discharge Inst-Urology Discharge Medications New, Converted, or Re-newed RX: RX on Chart Patient Instructions/Follow Up Plan Please make appointment to been seen in office next week. Increase oral fluids for 48 hours and then as needed. Diet and Activity as tolerated. If questions or concerns contact your physician Or seek help at emergency department. KARIN TANG MD May 16, 2018 8:20 am
[2018-05-16] MEDS ORDERED: CIPR-225 PO (08:29)
[2018-05-16] MEDS ORDERED: PHEN-639 PO (08:29)
[2018-05-16] MEDS ORDERED: MEPERIDINE (DEMEROL) INJ 50 MG/ML IVP ONE (08:30)
[2018-05-16] MEDS ORDERED: ONDANSETRON 4 MG/2 ML (SDV) Z0FRAN IVP PRN (08:30)
[2018-05-16] MEDS ORDERED: fentaNYL INJECTION 100 MCG/2 ML AMP IVP ONE (08:30)
[2018-05-16] MEDS ORDERED: HYDROmorphone 2 MG/ML VIAL (DILAUDID) IV ONE (08:30)
[2018-05-16 09:00] VITALS: BP 169/63
[2018-05-16 09:30] VITALS: BP 174/67
[2018-05-16 10:00] VITALS: BP 174/66
--- NOTE | 2018-05-16 10:17 | OPERATIVE REPORT ---
DATE OF SERVICE: 05/16/2018 PREOPERATIVE DIAGNOSIS: Right renal calyceal lesion. POSTOPERATIVE DIAGNOSES: 1. Right renal calyceal lesion. 2. Right UPJ obstruction. 3. Vaginal prolapse. OPERATIONS PERFORMED: Cystoscopy, right ureteral catheterization, right renal pelvis urine cytology and barbotage cytology and retrograde urogram. SURGEON: Edin Tang MD. ANESTHESIA: General. COMPLICATIONS: None. PROCEDURE: Under satisfactory general anesthesia, the patient in lithotomy position, genitalia were prepped and draped in the usual sterile fashion. Cystoscope was introduced under vision. There was some cystocele, which was treated now with putting a couple of gauzes in the vagina to be able to catheterize the ureter easily. The cystoscopy was essentially negative except for some mild trabeculations. No foreign body, bladder tumor or stone visualized. Ureteric orifices were normal in shape, size and configuration with clear efflux. Using the foroblique lens, I went ahead and passed a 6-Cuban urethral catheter all the way up to the renal pelvis. I obtained some urine cytology directly and then some barbotage cytology using saline. These were sent separately. I injected contrast to perform a retrograde, which showed a high riding urethral insertion with ballooning of the pelvis and the calyceal system. I was unable to elicit any kind of filling defect at all. On withdrawing the urethral catheter, there was good emptying of the ureters, but some hangover of the contrast in the pelvis and the caliceal system. The urethral catheter was removed. The bladder was drained and the cystoscope was removed. The patient tolerated the procedure and anesthesia well, was sent to the recovery room in stable condition. Findings were explained to her . PLAN: We will see the report on the cytologies. We will see her back next week. If the cytologies are negative, we will give her option with either to recheck the CT without and with contrast in three months or send her for second opinion at [facility] where a flexible ureteroscopy could help. I discussed that with her and we will discuss with the patient next week. Job ID: [id number] DocumentID: [id number] Dictated Date: 05/16/2018 08:23:51 Decision Unit Rn Date: 05/16/2018 10:17:07 Dictated By: EDIN TANG MD
--- NOTE | 2018-05-16 10:32 | Anesthesia-General Post-Op ---
General Patient Condition Mental Status/LOC: Same as Preop Cardiovascular: Satisfactory Nausea/Vomiting: Absent Respiratory: Satisfactory Pain: Controlled Complications: Absent Post Op Complications Complications None Follow Up Care/Instructions Patient Instructions None needed. Anesthesia/Patient Condition Patient Condition Patient is doing well, no complaints, stable vital signs, no apparent adverse anesthesia problems. No complications reported per nursing. SHERIDAN LAL CRNA May 16, 2018 10:32
--- NOTE | 2018-05-16 13:37 | Diagnostic Imaging Report ---
EXAMINATION: Supine abdomen at 10:11 a.m. INDICATION: Postop right cystoscopy. FINDINGS: The patient did undergo fluoroscopic examination of the right collecting system earlier today. There is now partial opacification of the right bladder by contrast. The bladder where visualized is unremarkable. There are number of calcifications scattered throughout the pelvis. These are most likely phleboliths. The CT abdomen/pelvis exam 04/18/2018 failed to show any sign of obstruction of the collecting systems by ureteral stone. There is some gas in both the large and small bowel in a nonspecific fashion. There is no evidence for bowel obstruction. The stomach is also partially distended by gas. There is no mass or organomegaly. The osseous structures are intact. IMPRESSION: 1. The bladder is now opacified following the fluoroscopic exam performed earlier today. 2. There is no acute abnormality of the abdomen or pelvis. Dictated by: Dictated on workstation # [id number]
--- NOTE | 2018-05-16 15:38 | Diagnostic Imaging Report ---
EXAM: Fluoroscopy at 7:48 a.m. INDICATION: Right ureteroscopy FINDINGS: Fluoroscopic assistance was provided for Dr. Whalen. 168.6 seconds of fluoroscopy time was utilized. A single spot film of the abdomen was obtained. There has been opacification of the right renal pelvis and the proximal right ureter. The CT abdomen/pelvis exam of 04/18/2018 suggested a 1 cm filling defect within the right renal pelvis. That apparent defect is difficult to appreciate on this study. IMPRESSION: Fluoroscopic assistance was provided for Dr. Whalen. Dictated by: Dictated on workstation # [id number]
== END 2018-05-16 10:14 | disposition home or self-care (01) ==
LOC: SDC 06:10
PROVIDERS: ATTEND Urology
DX: N20.0 Calculus of kidney (principal); N13.5 Crossing vessel and stricture of ureter without hydronephrosis; N81.10 Cystocele, unspecified; I10 Essential (primary) hypertension; K21.9 Gastro-esophageal reflux disease without esophagitis; K44.9 Diaphragmatic hernia without obstruction or gangrene; Z79.899 Other long term (current) drug therapy
CPT/HCPCS: 74018; 88112

== ENCOUNTER → 2018-05-30 | Outpatient (CLI) | payer MEDICARE ==
[~2018-05-30] MED LIST changes: +CIPR-225 PO; +IOHEXOL 350 MG/ML 100 ML (OMNIPAQUE 350) VIAL IV ONE; +METR-197 PO; -METR500T21 PO; +NS 250 ML (IVPB) BAG IV ONE; +PHEN-639 PO
[2018-05-30 09:12] LABS: ALANINE AMINOTRANSFERASE 19 U/L (0-55); ALKALINE PHOSPHATASE 98 U/L (40-136); BILIRUBIN,TOTAL 0.6 MG/DL (0.1-1.0); BUN/CREATININE RATIO 23; CALCIUM 9.6 MG/DL (8.5-10.1); CARBON DIOXIDE 23 MMOL/L (21-32); CHLORIDE 106 MMOL/L (98-107); CHOLESTEROL 178 MG/DL (< 200); CREATININE SERUM 0.87 MG/DL (0.60-1.30); GFR ESTIMATED > 60; GLUCOSE 94 MG/DL (70-105); HDL CHOLESTEROL 63 MG/DL (40-60); POTASSIUM 4.1 MMOL/L (3.6-5.0); SODIUM 139 MMOL/L (135-145); TRIGLYCERIDES 167 MG/DL (<150); VLDL CHOLESTEROL 33 MG/DL (5-40)
--- NOTE | 2018-05-30 10:55 | Diagnostic Imaging Report ---
PROCEDURE: CT angiography of the head and CT angiography of the neck with and without contrast. TECHNIQUE: Contiguous noncontrast images were obtained from the skull base through the vertex. After intravenous contrast administration, helical CT angiography of the neck was performed. Source data was reformatted into multiple 2D MIP projections. Delayed post contrast acquisition was also obtained. INDICATION: Carotid artery stenosis. COMPARISON: MRI brain without and with IV contrast 06/05/2015. FINDINGS: Noncontrast head CT demonstrates no evidence of a territorial infarction. No intracranial hemorrhage, mass effect, hydrocephalus or extra-axial fluid collections. The calvarium and skull base are intact. The visualized paranasal sinuses and mastoids are clear. CTA demonstrates conventional aortic arch. The internal carotid arteries are markedly tortuous, each completing a full 360 degree loop before entering the skull base. The basilar, bilateral vertebral, carotid, anterior cerebral, middle cerebral and posterior cerebral arteries demonstrate no high-grade narrowing, aneurysm or dissection. The anterior and posterior communicating arteries are patent. The superior, anterior inferior and posterior inferior cerebellar arteries are patent. The dural venous sinuses are patent. Heterogeneous low-attenuation nodule in the left thyroid lobe measuring up to 2.1 cm. Low-attenuation nodule in the right thyroid lobe measuring up to 0.8 cm. Scarring in the lung apices. Moderate spondylotic changes in the cervical spine including reversal of the normal cervical lordosis. No high-grade spinal canal narrowing is evident on this nondedicated exam. IMPRESSION: 1. No high-grade narrowing, aneurysm or dissection involving the major arteries in the head and neck. 2. No acute intracranial CT findings. 3. The bilateral internal carotid arteries are markedly tortuous, each completing a full 360 degree loop before entering the skull base. This may limit evaluation with carotid Doppler. Dictated by: Dictated on workstation # [id number]
== END ==
LOC: RAD 08:41
PROVIDERS: ATTEND Physician Assistant
DX: I65.23 Occlusion and stenosis of bilateral carotid arteries (principal); E78.2 Mixed hyperlipidemia; I10 Essential (primary) hypertension
CPT/HCPCS: 36415; 70496; 70498; 80053; 80061

== ENCOUNTER → 2018-10-19 | Outpatient (CLI) | payer MEDICARE ==
[~2018-10-19] MED LIST changes: -IOHEXOL 350 MG/ML 100 ML (OMNIPAQUE 350) VIAL IV ONE; +LOSA50TA63 PO; -LOSA50TA7 PO; +METR-145 PO; -METR-197 PO; -NS 250 ML (IVPB) BAG IV ONE; +OCUVITE SOFTGE1 EACH PO; -VIT1CAPS9 PO
--- NOTE | 2018-10-19 11:57 | Diagnostic Imaging Report ---
PROCEDURE: US DOPPLER ABD/COMPLETE TECHNIQUE: Multiple real-time grayscale images were obtained over the kidneys in various projections. Duplex evaluation of renal arteries was also attempted. INDICATION: Uncontrolled hypertension. FINDINGS: Right kidney measures 9.2 x 3.8 x 4.1 cm and the left kidney measures 9.2 x 5.7 x 4.4 cm. Cortical thickness and echogenicity of the kidneys is normal. There appears be a cyst in the right kidney approximately 15 mm in size in the lower pole. No calculi or hydronephrosis is seen. Renal artery velocities appear to be normal in the proximal, mid and distal aspects. The waveforms are unremarkable. No definite evidence of stenosis is seen. IMPRESSION: 1. Right renal cyst. 2. No sonographic evidence of renal artery stenosis. Dictated by: Dictated on workstation # [id number]
== END ==
LOC: RAD 07:58
PROVIDERS: ATTEND Family Medicine
DX: I10 Essential (primary) hypertension (principal); N28.1 Cyst of kidney, acquired
CPT/HCPCS: 93975

== ENCOUNTER → 2019-08-16 | Outpatient (CLI) | payer MEDICARE ==
[~2019-08-16] MED LIST changes: -METO-370 PO; +METO50TA7 PO
--- NOTE | 2019-08-16 12:08 | Diagnostic Imaging Report ---
INDICATION: Routine screening. COMPARISON: Comparison is made with prior mammograms from 01/02/2018 and 09/23/2016. TECHNIQUE: 2-D and 3-D bilateral screening mammography was performed. The current study was also evaluated with a Computer Aided Detection (CAD) system. 3-D tomosynthesis was also performed and reviewed. FINDINGS: Both breasts are heterogeneously dense, limiting the sensitivity of mammography. There are benign calcifications throughout both breasts. No mass or malignant-appearing microcalcifications are seen. Axillae are unremarkable. IMPRESSION: No mammographic features suspicious for malignancy are identified. ACR BI-RADS Category 2: Benign findings. Result letter will be mailed to the patient. Note: At least 10% of breast cancer is not imaged by mammography. Dictated by: Dictated on workstation # [id number]
== END ==
LOC: RAD 10:20
PROVIDERS: ATTEND Obstetrics & Gynecology
DX: Z12.31 Encounter for screening mammogram for malignant neoplasm of breast (principal)
CPT/HCPCS: 77067

== ENCOUNTER → 2020-09-26 | Outpatient (CLI) | payer MEDICARE ==
[~2020-09-26] MED LIST changes: -CIPR500T4 PO; +CIPR500T5 PO
--- NOTE | 2020-09-26 14:54 | Diagnostic Imaging Report ---
INDICATION: Routine screening. Comparison is made with prior mammogram 08/16/2019 and 01/02/2018. 2-D and 3-D bilateral screening mammography was performed with CAD. Both breasts are heterogeneously dense, limiting the sensitivity of mammography. Other benign calcifications bilaterally. No mass or malignant appearing microcalcifications are seen. Axillae are unremarkable. IMPRESSION: BI-RADS Category 2 No mammographic features suspicious for malignancy are identified. ACR BI-RADS Category 2: Benign findings. Result letter will be mailed to the patient. Note: At least 10% of breast cancer is not imaged by mammography. Dictated by: Dictated on workstation # [id number]
== END ==
LOC: RAD 10:18
PROVIDERS: ATTEND Obstetrics & Gynecology
DX: Z12.31 Encounter for screening mammogram for malignant neoplasm of breast (principal)
CPT/HCPCS: 77063; 77067

== ENCOUNTER 2020-10-09 12:58 | Outpatient (RCR) | payer MEDICARE | END 2020-10-09 13:59 | disposition home or self-care (01) | PROVIDERS: ATTEND Family Medicine | DX: R15.9 Full incontinence of feces (principal) ==

== ENCOUNTER → 2020-11-18 | Outpatient (CLI) | payer MEDICARE ==
--- NOTE | 2020-11-18 15:29 | Diagnostic Imaging Report ---
INDICATION: Postmenopausal female. COMPARISON: 09/23/2016 FINDINGS: AP Spine L2-L4: [BMD (g/cm2): 1.093] [T-Score: -0.9] [Z-Score: 1.3] [BMD Previous: 1.240] [BMD % Change: -11.9*] LT Hip Neck: [BMD (g/cm2): 0.833] [T-Score: -1.5] [Z-Score: 0.8] LT Hip Total: [BMD (g/cm2):0.997] [T-Score:-0.1] [Z-Score: 2.1] [BMD Previous: 1.005] [BMD % Change: -0.8] RT Hip Neck: [BMD (g/cm2):0.935] [T-Score:-0.7] [Z-Score:1.6] RT Hip Total: [BMD (g/cm2):1.026] [T-score:0.1] [Z-Score:2.3] [BMD Previous:1.043] [BMD % Change:-1.6]* *Indicates significant change from prior examination based on 95% confidence level. World Health Organization criteria for BMD interpretation classify patients as Normal (T-score at or above -1.0), Osteopenic (T-score between -1.0 and -2.5) or Osteoporotic (T-score at or below -2.5). LIMITATIONS AND MODIFICATION: None. FRACTURE RISK (FRAX SCORE): The ten year probability of (%): Major Osteoporotic Fracture: [11.3] Hip Fracture: [2.6] IMPRESSION: 1. Osteopenia (Low bone mass). 2. Bone mineral density has decreased by a statistically significant amount, as detailed above. 3. See below National Osteoporosis Foundation guidelines on when to potentially initiate pharmacologic therapy. Based on the National Osteoporosis Foundation Guidelines, pharmacologic treatment should be initiated in any of the following, unless clinical conditions suggest otherwise: * Any patient with prior fragility fracture of the hip or vertebrae. A spine fracture indicates 5X risk for subsequent spine fracture and 2X risk for subsequent hip fracture. * Osteoporosis (T-score <-2.5). * Postmenopausal women and men age 50 and older with low bone mass/osteopenia (T-score between -1.0 and -2.5) by DXA and 10-year major osteoporotic fracture greater than 20% or a 10-year probability of hip fracture greater than 3%. These fracture risks are supplied above in the FRAX score, if applicable. * Clinician judgement and/or patient preferences may indicate treatment for people with 10-year fracture probabilities above or below these levels. Dictated by: Dictated on workstation # [id number]
== END ==
LOC: RAD 13:00
PROVIDERS: ATTEND Obstetrics & Gynecology
DX: M85.80 Other specified disorders of bone density and structure, unspecified site (principal); Z78.0 Asymptomatic menopausal state
CPT/HCPCS: 77080

== ENCOUNTER → 2021-03-11 | Outpatient (CLI) | payer MEDICARE ==
[~2021-03-11] MED LIST changes: +CATHETER FLUSH 10 ML SYR IV PRN
[2021-03-11 13:31] VITALS: BP 179/75
[2021-03-11 13:36] VITALS: BP 179/58
--- NOTE | 2021-03-11 17:27 | Cardiology Stress Test Report ---
Stress Test Report Date of Procedure/Referring: Date of Procedure: Mar 11, 2021 Janey Marino Admitting Physician Harry Woods MD Indications: HTN Baseline Heart Rate: 58 Baseline Blood Pressure: Blood Pressure Systolic: 179 Blood Pressure Diastolic: 58 Vital Signs Date Time Temp Pulse Resp B/P (MAP) Pulse Ox O2 Delivery O2 Flow Rate FiO2 03/11/21 13:31 99 18 179/75 (109) 99 Room Air Baseline Vital Signs Vital Signs Date Time Temp Pulse Resp B/P (MAP) Pulse Ox O2 Delivery O2 Flow Rate FiO2 03/11/21 13:31 99 18 179/75 (109) 99 Room Air Baseline EKG: Baseline EKG: LBBB Summary: After explaining the procedure and details to the patient, she signed the consent and was brought to the stress nuclear laboratory. Patient exercised on standard Smooth protocol, EKG, heart rate and blood pressure were monitored continuously, resting and stress doses of radio tracer were injected, imaging was acquired and reviewed in the short axis, horizontal long axis and vertical long axis views Patient was able to exercise for a total of 4.30 minutes on Smooth protocol, METs 6.4 Maximum heart rate 133 Maximum blood pressure 179/56 Stress EKG, Minimal nondiagnostic changes Recovery EKG, Return to baseline TID: 1.06 SSS: 2 SDS: 0 EF: 76 Conclusion: 1. Fair exercise tolerance for a total of 4-minute 30 seconds on standard Smooth protocol total of 6.4 METS achieving 93% of maximal expected heart rate 2. Appropriate heart rate and blood pressure response to exercise return to baseline during recovery 3. Baseline left bundle branch block noted during test 4. No significant ischemia or infarction on SPECT images 5. Normal left ventricular size, EF 76% Copy Copies To 1: HARRY WOODS MD, BASHAR J MD Mar 11, 2021 17:27
== END ==
LOC: CARD 11:00
PROVIDERS: ATTEND Physician Assistant
DX: I08.3 Combined rheumatic disorders of mitral, aortic and tricuspid valves (principal); I10 Essential (primary) hypertension; E78.5 Hyperlipidemia, unspecified; I44.7 Left bundle-branch block, unspecified
CPT/HCPCS: 78452; 93017; 93306; A9502

== ENCOUNTER → 2021-04-15 | Outpatient (CLI) | payer MEDICARE ==
[~2021-04-15] MED LIST changes: -CATHETER FLUSH 10 ML SYR IV PRN
--- NOTE | 2021-04-15 09:53 | Diagnostic Imaging Report ---
INDICATION: Chronic diarrhea, urinary tract infection TECHNIQUE: Multiple grayscale sonographic images were obtained of the right upper quadrant of the abdomen. CORRELATION STUDY: None FINDINGS: LIVER: There is uniform echotexture within the visualized portions of the liver. Liver length 13 cm, somewhat small. There is normal, hepatopedal direction of flow within the main portal vein. GALLBLADDER: The gallbladder demonstrates no definitive shadowing gallstones, abnormal gallbladder wall thickening or pericholecystic fluid. COMMON BILE DUCT: Not visualized. No overt bile duct dilatation.. PANCREAS: Visualized portions appearing unremarkable. AORTA/IVC: Not well visualized. RIGHT KIDNEY: 9.7 x 4.8 x 3.7 cm. Small cystic area present 1.9 x 1.3 x 1.4 cm. No hydronephrosis. OTHER: None. IMPRESSION: 1. Negative appearing right upper quadrant abdominal ultrasound. 2. Right renal cyst. Dictated by: Dictated on workstation # [id number]
== END ==
LOC: RAD 08:12
PROVIDERS: ATTEND Internal Medicine Gastroenterology
DX: N28.1 Cyst of kidney, acquired (principal); K52.9 Noninfective gastroenteritis and colitis, unspecified; N39.0 Urinary tract infection, site not specified
CPT/HCPCS: 76705

== ENCOUNTER → 2021-10-01 | Outpatient (CLI) | payer MEDICARE ==
[~2021-10-01] MED LIST changes: +CATHETER FLUSH 10 ML SYR IVP PRN
--- NOTE | 2021-10-01 14:44 | Diagnostic Imaging Report ---
INDICATION: Abdominal pain, reflux. EXAMINATION: HIDA scan from 10/01/2021. FINDINGS: After uneventful administration of 5.2 mCi of technetium 99m Choletec intravenously, subsequent imaging was performed with prompt homogeneous uptake seen throughout the liver. There appears to be hepatomegaly. The gallbladder and small bowel seen within less than 60 minutes. At 60 minutes 8 ounces of Ensure given orally with continued imaging performed. Ejection fraction is calculated at 70.3% IMPRESSION: 1. Nonobstructive of appearance of the gallbladder with normal ejection fraction. 2. Hepatomegaly. Dictated by: Dictated on workstation # [id number]
== END ==
LOC: CARD 12:00
PROVIDERS: ATTEND Nurse Practitioner Family
DX: K21.9 Gastro-esophageal reflux disease without esophagitis (principal); R16.0 Hepatomegaly, not elsewhere classified; R10.9 Unspecified abdominal pain; M54.9 Dorsalgia, unspecified
CPT/HCPCS: 78227; A9537

== ENCOUNTER → 2021-12-24 | Outpatient (CLI) | payer MEDICARE ==
[~2021-12-24] MED LIST changes: -CATHETER FLUSH 10 ML SYR IVP PRN
--- NOTE | 2021-12-24 15:31 | Diagnostic Imaging Report ---
INDICATION: Routine screening. COMPARISON is made with prior mammograms from 09/26/2020 and 08/16/2019. 2-D and 3-D bilateral screening mammography was performed with CAD. Both breasts are heterogeneously dense, limiting the sensitivity of mammography. There are scattered benign calcifications. No mass or malignant-appearing microcalcifications are seen. Axillae are unremarkable. IMPRESSION: BI-RADS Category 2 No mammographic features suspicious for malignancy are identified. ACR BI-RADS Category 2: Benign findings. Result letter will be mailed to the patient. Note: At least 10% of breast cancer is not imaged by mammography. Dictated by: Dictated on workstation # [id number]
== END ==
LOC: RAD 11:15
PROVIDERS: ATTEND Family Medicine
DX: Z12.31 Encounter for screening mammogram for malignant neoplasm of breast (principal)
CPT/HCPCS: 77063; 77067

== ENCOUNTER → 2023-01-11 | Outpatient (CLI) | payer MEDICARE ==
--- NOTE | 2023-01-11 13:40 | Diagnostic Imaging Report ---
INDICATION: Postmenopausal screening. COMPARISON: 11/18/2020 FINDINGS: AP Spine L1-L4: [BMD (g/cm2): 1.165] [T-Score: -0.3] [Z-Score: 2.0] [BMD Previous: 1.093] [BMD % Change: 6.6*] LT Hip Neck: [BMD (g/cm2): 0.836] [T-Score: -1.5] [Z-Score: 1.0] LT Hip Total: [BMD (g/cm2):0.993] [T-Score:-0.1] [Z-Score: 2.2] [BMD Previous: 0.997] [BMD % Change: -0.4] RT Hip Neck: [BMD (g/cm2):0.929] [T-Score:-0.8] [Z-Score:1.6] RT Hip Total: [BMD (g/cm2):1.024] [T-score:0.1] [Z-Score:2.4] [BMD Previous:1.026] [BMD % Change:-0.2] *Indicates significant change from prior examination based on 95% confidence level. World Health Organization criteria for BMD interpretation classify patients as Normal (T-score at or above -1.0), Osteopenic (T-score between -1.0 and -2.5) or Osteoporotic (T-score at or below -2.5). LIMITATIONS AND MODIFICATION: None. FRACTURE RISK (FRAX SCORE): The ten year probability of (%): Major Osteoporotic Fracture: [NA] Hip Fracture: [NA] IMPRESSION: 1. Normal bone mineral density. 2. There has been a statistically significant increase in BMD since prior exam, detailed above. 3. See below National Osteoporosis Foundation guidelines on when to potentially initiate pharmacologic therapy. Based on the National Osteoporosis Foundation Guidelines, pharmacologic treatment should be initiated in any of the following, unless clinical conditions suggest otherwise: * Any patient with prior fragility fracture of the hip or vertebrae. A spine fracture indicates 5X risk for subsequent spine fracture and 2X risk for subsequent hip fracture. * Osteoporosis (T-score <-2.5). * Postmenopausal women and men age 50 and older with low bone mass/osteopenia (T-score between -1.0 and -2.5) by DXA and 10-year major osteoporotic fracture greater than 20% or a 10-year probability of hip fracture greater than 3%. These fracture risks are supplied above in the FRAX score, if applicable. * Clinician judgement and/or patient preferences may indicate treatment for people with 10-year fracture probabilities above or below these levels. Dictated by: Dictated on workstation # [id number]
--- NOTE | 2023-01-11 15:36 | Diagnostic Imaging Report ---
INDICATION: Routine screening. Comparison is made with prior mammogram from 12/24/2021 and 09/26/2020. 2-D and 3-D bilateral screening mammography was performed with CAD. Both breasts are heterogeneously dense, limiting the sensitivity of mammography. The parenchymal pattern is stable. No mass or malignant-appearing microcalcifications are seen. There are scattered benign calcifications. Axillae are unremarkable. IMPRESSION: No mammographic features suspicious for malignancy are identified. ACR BI-RADS Category 2: Benign findings. Result letter will be mailed to the patient. Note: At least 10% of breast cancer is not imaged by mammography. BI-RADS Category 2 Dictated by: Dictated on workstation # [id number]
== END ==
LOC: RAD 09:41
PROVIDERS: ATTEND Obstetrics & Gynecology
DX: Z12.31 Encounter for screening mammogram for malignant neoplasm of breast (principal); M81.0 Age-related osteoporosis without current pathological fracture; Z78.0 Asymptomatic menopausal state
CPT/HCPCS: 77063; 77067; 77080

== ENCOUNTER → 2023-03-21 | Outpatient (CLI) | payer MEDICARE | LOC: CARD 08:13 | PROVIDERS: ATTEND Physician Assistant | DX: I11.9 Hypertensive heart disease without heart failure (principal); I08.3 Combined rheumatic disorders of mitral, aortic and tricuspid valves | CPT/HCPCS: 93306 ==

== ENCOUNTER → 2023-06-08 | Outpatient (CLI) | payer MEDICARE ==
[~2023-06-08] MED LIST changes: +AMLO2.5T4 PO; +ASCO-262 PO; +CATHETER FLUSH 10 ML SYR IVP PRN; +CYAN-41 PO; +ESTR0.5T3 PO; +HYDR-3922 PO; +LOSA100T58 PO; +MAGN250T13 PO; +MTP100TCR PO; +MV-M1CAP24 PO; +REGADENOSON 0.4 MG/5 ML SYR IV ONE; +TRAV2.5D6 OD; +meTOprolol INJECTION 5 MG/5 ML VIAL ONE
[2023-06-08 13:17] VITALS: BP 154/82
--- NOTE | 2023-06-08 15:14 | Cardiology Stress Test Report ---
Stress Test Report Date of Procedure/Referring: Date of Procedure: Jun 08, 2023 PCP Harry Woods MD Admitting Physician Admitting Physician: Attending Physician: Janey Hoskins Pa-C Baseline Heart Rate: 71 Baseline Blood Pressure: Blood Pressure Systolic: 154 Blood Pressure Diastolic: 82 Baseline Vitals Vital Signs Date Time Temp Pulse Resp B/P (MAP) Pulse Ox O2 Delivery O2 Flow Rate FiO2 06/08/23 13:17 71 154/82 (106) 98 Baseline EKG: Baseline EKG: LBBB Summary After explaining the procedure to the patient, she signed a consent and then brought to the stress nuclear laboratory. Patient received 0.4 mg Lexiscan for stress test, ECG, heart rate and blood pressure were monitored continuously. Resting and stress dose of radio tracer were injected, imaging was acquired and reviewed in short axis, horizontal long axis and vertical long axis views. TID: 1.03 SSS: 4 SDS: 4 EF: 86 Patient tolerated Lexiscan well Baseline left bundle branch block with frequent PVCs persisted during test, had 1 episode of 3 beats nonsustained ventricular tachycardia No significant ischemia or infarction noted on SPECT images Normal left ventricular size, ejection fraction 86% Copy Copies To 1: HARRY WOODS MD, BASHAR J MD Jun 08, 2023 15:14
== END ==
LOC: CARD 11:32
PROVIDERS: ATTEND Physician Assistant
DX: I10 Essential (primary) hypertension (principal)
CPT/HCPCS: 78452; 93017; A9502

== ENCOUNTER 2023-06-15 07:52 | Day surgery (SDC) | payer MEDICARE ==
[2023-06-15] VITALS (10 sets, daily range): BP systolic 109–175; BP diastolic 45–74
[~2023-06-15] VITALS: Ht 154.9 cm; Wt 52.3 kg
[~2023-06-15 07:52] MED LIST changes: -AMLO2.5T4 PO; -ASCO-262 PO; -CATHETER FLUSH 10 ML SYR IVP PRN; -CYAN-41 PO; -ESTR0.5T3 PO; -HYDR-3922 PO; -LOSA100T58 PO; -MAGN250T13 PO; -MTP100TCR PO; -MV-M1CAP24 PO; -REGADENOSON 0.4 MG/5 ML SYR IV ONE; -TRAV2.5D6 OD; -meTOprolol INJECTION 5 MG/5 ML VIAL ONE
[2023-06-15] MEDS ORDERED: NS IV 1000 ML 1,000 ML IV SCH ×2 (08:00→12:15)
[2023-06-15] MEDS ORDERED: HEParin (CATH LAB) 2,000 ML IV ONE (08:03)
[2023-06-15] MEDS ORDERED: LIDOCAINE 1% INJ 20 ML VIAL ONE (08:03)
[2023-06-15] MEDS ORDERED: NS IV 1000 ML 1,000 ML ONE (08:03)
[2023-06-15 08:37] LABS: HEMATOCRIT 41 % (35-52); HEMOGLOBIN 13.7 g/dL (11.5-16.0); MEAN CORPUSCULAR HEMOGLOBIN 31 pg (25-34); MEAN CORPUSCULAR HGB CONC 33 g/dL (32-36); MEAN CORPUSCULAR VOLUME 93 fL (80-99); MEAN PLATELET VOLUME 9.2 fL (9.0-12.2); PLATELET COUNT 195 10^3/uL (130-400)
--- NOTE | 2023-06-15 08:39 | Diagnostic Imaging Report ---
CHEST 1 VIEW, AP/PA ONLY Indication: Chest pain. Preoperative clearance for her catheter. Comparison: None available. Findings: No focal airspace disease in the visualized lungs. Calcified nodule in the left midlung zone is compatible with old granulomatous infection. No pleural effusion or pneumothorax. Normal cardiomediastinal silhouette. Impression: 1. No acute cardiopulmonary process by portable radiography. Dictated by: Dictated on workstation # [id number]
[2023-06-15 08:45] LABS: BACTERIA,URINE LARGE /HPF; BILIRUBIN,URINE NEGATIVE (NEGATIVE); CLARITY,URINE SLIGHTLY CLOUDY; COLOR,URINE YELLOW; GLUCOSE, URINE (UA) NEGATIVE (NEGATIVE); KETONES,URINE NEGATIVE (NEGATIVE); LEUKOCYTE ESTERASE ,URINE NEGATIVE (NEGATIVE); NITRITE,URINE NEGATIVE (NEGATIVE); PH,URINE 6.5 (5-9); PROTEIN,URINE NEGATIVE (NEGATIVE); WBC,URINE 0-2 /HPF
[2023-06-15] MEDS ORDERED: ATOR20TA66 PO (08:45)
[2023-06-15] MEDS ORDERED: LOSA100T58 PO (08:45)
[2023-06-15] MEDS ORDERED: MTP100TCR PO (08:45)
[2023-06-15] MEDS ORDERED: MAGN250T13 PO (08:45)
[2023-06-15] MEDS ORDERED: MV-M1CAP24 PO (08:45)
[2023-06-15] MEDS ORDERED: CYAN-41 PO (08:45)
[2023-06-15] MEDS ORDERED: METO50TA7 PO (08:45)
[2023-06-15] MEDS ORDERED: ESTR0.5T3 PO (08:45)
[2023-06-15] MEDS ORDERED: HYDR-3922 PO (08:45)
[2023-06-15] MEDS ORDERED: TRAV2.5D6 OD (08:45)
[2023-06-15] MEDS ORDERED: AMLO2.5T4 PO (08:45)
[2023-06-15] MEDS ORDERED: ASCO-262 PO (08:45)
[2023-06-15 08:48] LABS: INR 0.9 (0.8-1.4); PROTHROMBIN TIME PATIENT 12.5 SEC (12.2-14.7)
[2023-06-15 08:57] LABS: BILIRUBIN,TOTAL 0.6 MG/DL (0.1-1.0); CALCIUM 9.6 MG/DL (8.5-10.1); CREATININE SERUM 0.84 MG/DL (0.60-1.30); POTASSIUM 4.2 MMOL/L (3.6-5.0); TOTAL PROTEIN 7.1 GM/DL (6.4-8.2)
--- NOTE | 2023-06-15 09:09 | Cardiac Procedure Note-CS/ASA ---
Pre-Procedure Note Pre-Op Procedure Note Date of Available H&P: Jun 09, 2023 Date H&P Reviewed: Jun 15, 2023 Time H&P Reviewed: 09:08 History & Physical: H&P Reviewed, Patient Examed, No changes noted Pre-Operative Diagnosis: CAD Moderate Sedation PreProcedure Time 09:09 ASA Score 3 Airway Lungs Heart ASA score ASA 1: a normal healthy patient ASA 2: a patient with a mild systemic disease (mid diabetes, controlled hypertension, obesity ASA 3: a patient with a severe systemic disease that limits activity (angina, COPD, prior Myocardial infarction) ASA 4: a patient with an incapacitating disease that is a constant threat to life (CHF, renal failure) ASA 5: a moribund patient not expected to survive 24 hrs. (ruptured aneurysm) ASA 6: a declared brain- patient whose organs are being harvested. For emergent operations, add the letter E after the classification Mallampati Classification Grade 3 Sedation Plan Analgesia, Amnesia, Plan communicated to team members, Discussed options with patient/fam, Discussed risks with patient/fam The patient is an appropriate candidate to undergo the planned procedure, sedation, and anesthesia. The patient immediately re-assessed prior to indication. JIMBO RAIN MD Jun 15, 2023 09:09
[2023-06-15] MEDS ORDERED: HEParin 1000 UNIT/ML (10ML VIAL) FOR BOLUS ONE (11:31)
[2023-06-15] MEDS ORDERED: VERAPAMIL 5 MG/2 ML (CALAN) VIAL IV ONE (11:31)
[2023-06-15] MEDS ORDERED: fentaNYL INJECTION 100 MCG/2 ML VIAL ONE (11:31)
[2023-06-15] MEDS ORDERED: MIDAZOLAM INJ 5 MG/5 ML VIAL ONE (11:31)
[2023-06-15] MEDS ORDERED: NITRO DRIP 25000 MCG/D5W 0 ML IV ONE (11:32)
[2023-06-15] MEDS ORDERED: PATIENT MAY USE OWN MEDS, ALL PO SCH (12:15)
--- NOTE | 2023-06-15 12:15 | Discharge Inst-Post CATH ---
Discharge Inst-CATH/EP Problems Reviewed?: Yes Post Cardiac Cath/EP D/C Inst Follow Up/Plan Appointment with Dr. Mejia's office in 2 to 4 weeks <b>CARDIAC CATH/EP PROCEDURE DISCHARGE INSTRUCTIONS</b> ACTIVITY * Go Home directly and rest. * Limit activity of the leg (or wrist if it was used) for 7 days including aer obics, swimming, jogging, bicycling, etc. * Restrict stair-climbing for 7 days if possible, if not, climb up with your non-cath leg, then bring together on the same step. * Avoid lifting, pushing, pulling or excessive movement of the affected extremi ty for 7 days. * Customary sexual activity may be resumed after 2 days-use caution not to use a position that strains or causes pain to the affected extremity. * No driving for 24 hours. * NO SMOKING. * Avoid straining for bowel movements for 7 days. * Gentle walking on level ground is allowed. * Returning to work will depend on the type of procedure and the results. Your doctor will discuss this with you. CALL YOUR DOCTOR FOR ANY OF THE FOLLOWING: *If bleeding from the puncture site occurs- Apply gentle pressure to site with clean cloth and call your doctor or EMS. * If a knot or lump forms under the skin, increases in size, or causes pain. * If bruising appears to be worsening or moving further down your leg instead of disappearing. * Temperature above 101 F. CARE OF YOUR GROIN INCISION; * Bruising or purple discoloration of the skin near the puncture site is common. * You may shower only, no bathtub bathing for 5 days. Be careful to avoid slipping as your leg may feel stiff. * If a closure device was used on your femoral artery, please see the attached guide regarding care of the device and your leg. * Leave dressing on FOR 24 hours. CARE OF YOUR WRIST INCISION; * Bruising or purple discoloration of the skin near the puncture site is common. * You may shower. * DO NOT submerge wrist. * Leave dressing on FOR 24 hours. JIMBO MEJIA MD Jun 15, 2023 12:15
--- NOTE | 2023-06-15 12:19 | Cardiac Cath Report ---
Cardiac Cath Report Physician (s)/Community Associate (s) Physician JIMBO RAIN MD Pre-Procedure Diagnosis Pre-Procedure Diagnosis: CAD Post-Procedure Note Procedure Start Date: Jun 15, 2023 Name of Procedure: Left heart catheterization Findings/Procedure Note PROCEDURE NOTE: 78 years old lady with hypertension, hyperlipidemia, had an abnormal stress test with frequent PVCs and short run of nonsustained ventricular tachycardia, cardiac catheterization was advised. After explaining the procedure to the patient, all pros and cons were explained, all questions were answered. The patient signed the consent and then she was placed in the cardiac catheterization laboratory. Groin was prepped in SL fashion local anesthesia was used. Sheath placed in the right femoral artery. Jamil' right and left catheter were used to access the coronary system. Pigtail was used to access the left ventricular cavity. Left ventriculogram was not done pressure was measured Aortic arch angiogram was not done At the end of the procedure the sheath was removed. Manual pressure applied FINDINGS: Hemodynamics LV 115/18, end-diastolic pressure of 18 Aorta 116/44 mean of 61 ANATOMY: Left Main is free of obstructive disease Left Anterior Descending is tortuous free of obstructive disease Left Circumflex is tortuous free of obstructive disease Right Coronary Artery is small, dominant artery, no obstructive disease LV Gram was not done, pressure was measured CONCLUSION: Small coronary system, slightly tortuous LAD, no significant obstructive disease Normal left ventricular end-diastolic pressure DISCUSSION AND RECOMMENDATION: The episode of short nonsustained ventricular tachycardia is none ischemic in nature. Recommend using beta-blockers and follow-up as an outpatient Anesthesia Type: Conscious Sedation Estimated blood loss (mL): 10 ml Contrast Amount: 37 ml Total Radiation Dose: 64 mgy Post-Procedure Diagnosis Post-operative diagnosis: Chest pain Coronary artery disease Hypertension Ventricular tachycardia JIMBO RAIN MD Jun 15, 2023 12:19
== END 2023-06-15 15:00 | disposition home or self-care (01) ==
LOC: CATH 07:52 → SDC 12:57 → CATH 15:00
PROVIDERS: ATTEND Internal Medicine Cardiovascular Disease
DX: R07.9 Chest pain, unspecified (principal); I25.10 Atherosclerotic heart disease of native coronary artery without angina pectoris; I10 Essential (primary) hypertension; I47.20 Ventricular tachycardia, unspecified; R00.2 Palpitations; R60.9 Edema, unspecified; I44.7 Left bundle-branch block, unspecified; I47.19 Other supraventricular tachycardia; I65.23 Occlusion and stenosis of bilateral carotid arteries; E78.2 Mixed hyperlipidemia; Z79.899 Other long term (current) drug therapy; Z88.2 Allergy status to sulfonamides
CPT/HCPCS: 71045; 80053; 80061; 81000; 85027; 85610; 85730; 87081; 87088; 93005; 93458; C1894; 36415